=== PATIENT | male | born 1980 | race Caucasian/White ===

== ENCOUNTER 2024-12-25 17:40 | Emergency (ER) | payer MEDICAID, SELFPAY ==
[2024-12-25 17:47] VITALS: BP 142/86; PULSE 76; RESP 18; O2SAT 98
[2024-12-25 17:48] VITALS: BP 142/86; PULSE 76; RESP 18; O2SAT 98
--- NOTE | 2024-12-25 18:55 | W.ED.GENAD ---
Discharge Plan Disposition [facility] Disposition[facility] Discharge Details Clinical Impression: Left leg swelling, Medical clearance for incarceration Primary Care Provider: Unknown,Unknown ED Provider: Julio Hutchison Home Meds and New Rx's Prescriptions: No Action No Known Home Meds Discharge Instructions Instructions: Deep Vein Thrombosis (DVT) ED Additional Instructions: Please follow-up as instructed for outpatient ultrasound of your left lower extremity to rule out a blood clot given its recent swelling. Please follow-up as instructed for a ultrasound of your left leg to rule out a blood clot please follow-up with your primary care provider regarding your visit to the emergency department today. Be sure to discuss results of all test performed here today to include radiology, and laboratory testing as well as results for any pending cultures. Should your symptoms worsen, or if you develop new concerning symptoms, please return immediately emergency department for further evaluation. HPI General Date/Time Provider Initiated Documentation: 12/25/24 18:55. HPI Narrative: MDM/Narrative: Initial Assessment: Leg swelling, potentially related to previous surgery involving lymphatic system. No pain, recent trauma, fever, or chills. History of varicose veins. GERMANIA 0.286. Differential Diagnosis: - Blood clot: Swollen leg of questionable chronicity, no pain or erythema. Unable to evaluate outside business hours. Plan: Schedule ultrasound tomorrow morning as patient is stable. - Sequela of previous surgery: Swelling possibly due to lymphatic system involvement. Plan: Monitor and reassess after ultrasound. - Heart failure, unlikely given unilateral presentation ED Course: Smart clearance performed patient with a score of 0. Will be cleared for incarceration plan for outpatient DVT scan. Clinical Impression: - Leg swelling Disposition: Discharge: [facility]. Return for ultrasound tomorrow morning. This document was created with assistance from [employer]. The patient consented to its use. HPI: The patient, with a history of bacteremia and subsequent skin graft, presents with persistent lower extremity edema. The patient reports that the swelling in the leg, which typically subsides after rest, has been persistent recently. The edema is described as fluid retention without associated pain. The patient has no history of deep vein thrombosis but has varicose veins. There have been no recent episodes of chest pain, dyspnea, fever, chills, trauma, or falls. The skin graft was performed 7-8 years ago following a severe blood infection. The patient consumes beer, with the last intake at 1500 hours today. The blood alcohol concentration is 0.286. There is no history of seizures related to alcohol withdrawal, although the patient experiences tremors, which are not present currently. PAST SURGICAL HISTORY: Skin graft performed 7-8 years ago. ROS: Negative besides as mentioned above Exam: Vital signs: Reviewed. General Appearance: Alert and oriented. No acute distress. HEENT: NCAT, EOMI, not icteric. External ears normal. No rhinorrhea. Moist mucous membranes. Neck: Supple, full range of motion, no observable masses, No meningeal sign. Respiratory: No Respiratory distress. No tachypnea. Cardiovascular: RRR, no edema. Gastrointestinal: Soft, nondistended, No rebound tenderness. Back: No midline tenderness to palpation or palpable step-offs of the C/T/L spine. Musculoskeletal: Left lower extremity swelling noted, to the pretibial region, nontender no erythema no palpable cords Skin: Skin graft noted on right lower extremity. Neurological: Normal Gait, Grossly intact. Psychiatric: Appropriate for situation. Related Data Home Medications ?Medication ?Instructions ?Recorded ?Confirmed Unknown [No Known Home Meds] 12/25/24 12/25/24 Allergies Allergy/AdvReac Type Severity Reaction Status Date / Time No Known Allergies Allergy Unverified 12/25/24 17:48 General Stated Complaint: Cellulitis PIPPA: 3 Course Vital Signs Vital signs: Vital Signs Pulse 76 12/25/24 17:47 Respiratory Rate 18 12/25/24 17:47 Blood Pressure 142/86 H 12/25/24 17:47 Pulse Oximetry 98 12/25/24 17:47 Pulse 76 12/25/24 17:48 Respiratory Rate 18 12/25/24 17:48 Blood Pressure 142/86 H 12/25/24 17:48 Pulse Oximetry 98 12/25/24 17:48 Pain Level 0 12/25/24 17:48 PFSH All Active Problems (Updated 12/25/24 @ 18:58 by Julio Hutchison MD) Medical clearance for incarceration (Acute) Left leg swelling (Acute) Social History Smoking/Tobacco Use Status: Never Smoking risk assessment performed?: Yes Alcohol Intake: current Alcohol Intake frequency: 0-2 drinks per day Drug use: Never Substance use type: marijuana Do you feel safe at home: Yes Do you feel safe in your relationship?: Yes PAWSS Have you Been Recently Intoxicated or Drunk Within the Last 30 days?: Yes Have you Ever Experienced Previous Episodes of Alcohol Withdrawal?: Yes Have you ever Experienced Withdrawal Seizures?: No Have you ever Experienced Delirium Tremens(DT)s?: No Have you ever undergone Alcohol Rehabilitation Treatment (i.e, inpt ot outpatient treatment programs)?: No Have you ever Experienced Blackouts?: No Have you ever Combined Alcohol with other Downers within the last 90 days?: No Have you ever Combined Alcohol with any other Substance of Abuse during the last 90 days?: No Positive Blood Alcohol level on Presentation? [PCS.BAL]: No Evidence of Increased Autonomic Activity (i.e. HR>120, tremor, sweating, agitation, nausea)?: No Result: 2
[2024-12-25 19:08] VITALS: BP 142/86; PULSE 76; RESP 18; O2SAT 98
== END 2024-12-25 19:09 ==
PROVIDERS: Emergency Provider General Practice
DX: R22.42 Localized swelling, mass and lump, left lower limb (principal)
CPT/HCPCS: 99285; 99283

== ENCOUNTER 2024-12-28 17:54 | Inpatient (IN) | payer MEDICAID, SELFPAY ==
[2024-12-28] VITALS (45 sets, daily range): BP systolic 100–124; BP diastolic 68–93; PULSE 60–94; RESP 13–29; TEMP 36.7–36.9; O2SAT 94–99
--- NOTE | 2024-12-28 18:45 | RT.EKG_ITS ---
APPROVED REPORT Exam: Resting ECG Reason for Exam: confusion Patient Location: E HR:70 bpm ECG Measurements Heart Rate 70 AXIS NE 167 P 51 QRSd 98 QRS 57 QT 455 T 48 QTc 493 Conclusion Sinus rhythm...normal P axis, V-rate 60- 99 ST elev, probable normal early repol pattern...ST elevation, age<55 No STEMI
--- NOTE | 2024-12-28 19:15 | ED.GENADUL_ITS ---
Discharge Plan Disposition Patient Disposition: Admit to [facility] Condition: Serious Discharge Details Clinical Impression: Alcohol withdrawal delirium Primary Care Provider: Unknown,Unknown ED Provider: Julio Hutchison Home Meds and New Rx's Prescriptions: No Action No Known Home Meds HPI General Date/Time Provider Initiated Documentation: 12/28/24 18:01 . HPI Narrative: MDM/Narrative: Initial Assessment: 44-year-old male from correctional facility for alcohol withdrawal. Reports hallucinations, talking to imaginary people, and trying to make phone calls using fingers. Last alcohol consumption 3 days ago. No other substances used. Complains of back pain for 6 months. Differential Diagnosis: -Altered mental status: History of unknown chronic medication which was recently withdrawn which may be playing a role, also history of prior alcohol withdrawal. Will obtain screening blood work, EKG and monitor patient -Doubt CVA given lack of lateralizing features on exam -Encephalitis/meningitis unlikely given patient is afebrile without headache. - Acute intoxication: Will obtain urine drug screen and alcohol levels ED Course: Blood work conducted. Results reviewed. Minimal elevation of ammonia, total bilirubin up which is similar to patient's baseline noted through [facility] portal. Otherwise no acute significant findings. On reassessment, patient is endorsing visual and auditory hallucinations, remains tremulous, and although he is not hypertensive or tachycardic, I suspect that given the timeline of his last drink being over 4 days ago that he is developing delirium tremens. Case discussed with Dr. Ulrich (hospitalist) who was agreeable to plan for admission. Patient treated with Valium 10 mg IV. Clinical Impression: - Alcohol withdrawal - Delirium tremens This document was created with assistance from [employer]. The patient consented to its use. Disposition: Admit to [facility] HPI: The patient is a 44-year-old male with a history of alcohol withdrawal, presenting with hallucinations and dorsalgia. He was brought in from a correctional facility. The patient reports experiencing visual and auditory hallucinations, including conversing with imaginary individuals and attempting to make phone calls using h is fingers. He denies any formication or pruritus. His last alcohol consumption was three days ago, and he has abstained since then. He denies the use of other substances. His sleep quality is satisfactory, and he reports no anxiety or nausea. He was previously on a medication similar to diazepam, which was discontinued by the facility, leading to a deterioration in his condition. He believes he was administered a dose recently. The patient has been experiencing dorsalgia for the past six months, with an unknown etiology. Last night, he experienced symptoms of indigestion, including a burning sensation and eructation, which have since resolved. ROS: Negative besides as mentioned above Exam: Vital signs: Reviewed. General Appearance: Alert and oriented. No acute distress. HEENT: NCAT, EOMI, not icteric. External ears normal. No rhinorrhea. Moist mucous membranes. Neck: Supple, full range of motion, no observable masses, No meningeal sign. Respiratory: No Respiratory distress. No tachypnea. Cardiovascular: RRR, no edema. Gastrointestinal: Soft, nondistended, No rebound tenderness. Back: No midline tenderness to palpation or palpable step-offs of the C/T/L spine. Skin: Warm and dry, no rash. Neurological: Normal Gait, Grossly intact. Psychiatric: Appropriate for situation. Rhythm: NSR Rate: 70 [place]: Normal axis Intervals: Normal intervals Other findings: No acute ST segment or T wave changes to suggest acute ischemia. Labs: Laboratory Tests Range/Units 12/28/24 12/28/24 12/28/24 19:20 20:24 20:40 WBC (4.4-10.8) 10^3/uL 5.84 RBC (4.36-5.78) 10^6/uL 4.38 Hgb (13.5-17.5) g/dL 13.9 Hct (40.0-50.0) % 40.4 MCV (80-95) fL 92 MCH (27.0-33.0) pg 31.7 MCHC (32.0-36.0) % 34.4 RDW (11.8-14.1) % 15.2 H Plt Count (130-400) 10^3/uL 69 L MPV (8.0-11.0) fL 12.2 H Immature Gran % % 0.3 Neutrophils % % 52.9 Lymphocytes % % 25.2 Monocytes % % 19.7 Eosinophils % % 0.7 Basophils % % 1.2 Nucleated RBC % (0.0-0.3) % 0.0 Absolute Neutrophils (1.2-6.7) 10^3/uL 3.09 Absolute Lymphocytes (1.2-3.4) 10^3/uL 1.47 Absolute Monocytes (0.1-0.8) 10^3/uL 1.15 H Absolute Eosinophils (0.0-0.7) 10^3/uL 0.04 Absolute Basophils (0.0-0.2) 10^3/uL 0.07 Sodium (136-145) mmol/L 138 Potassium (3.5-5.1) mmol/L 3.7 Chloride (98-107) mmol/L 101 Carbon Dioxide (21.0-32.0) mmol/L 27.6 Anion Gap (3-11) mmol/L 9.4 BUN (7-18) mg/dL 22 H Creatinine (0.70-1.30) mg/dL 1.2 Est GFR (CKD-EPI 2020) (mL/min/1.73m2) 77.43 Glucose (74-106) mg/dL 95 Calcium (8.5-10.1) mg/dL 9.9 Total Bilirubin (0.2-1.0) mg/dL 4.7 H AST (15-37) U/L 158 H ALT (16-63) U/L 71 H Alkaline Phosphatase (46-116) U/L 136 H Ammonia (11-32) umol/L 35 H Troponin I (<or=76) ng/L 26 25 Total Protein (6.4-8.2) g/dL 8.4 H Albumin (3.4-5.0) g/dL 3.6 Salicylates (<2.8) mg/dL < 2.8 Acetaminophen (10-30) ug/mL < 2 Ethyl Alcohol (<10) mg/dL < 3.0 Related Data Home Medications ?Medication ?Instructions ?Recorded ?Confirmed Unknown [No Known Home Meds] 12/25/24 0 12/28/24 Allergies Allergy/AdvReac Type Severity Reaction Status Date / Time No Known Allergies Allergy Unverified 12/25/24 17:48 General Stated Complaint: ETOHWithdr PIPPA: 3 Course Vital Signs Vital signs: Vital Signs Temperature 36.9 C 12/28/24 18:09 Pulse 94 H 12/28/24 18:09 Respiratory Rate 14 12/28/24 18:09 Blood Pressure 115/78 12/28/24 18:09 Pulse Oximetry 97 12/28/24 18:09 Temperature 36.9 C 12/28/24 18:09 Temperature Source Oral 12/28/24 18:09 Pulse 70 12/28/24 18:38 Pulse 74 12/28/24 18:50 Respiratory Rate 21 12/28/24 18:50 Respiratory Effort Normal, Non-Labored 12/28/24 19:08 Respiratory Depth Normal 12/28/24 19:08 Respiratory Pattern Normal 12/28/24 19:08 Blood Pressure 100/68 12/28/24 18:38 Blood Pressure Mean 75 12/28/24 18:38 Pulse Oximetry 97 12/28/24 18:09 Oxygen Delivery Method Room Air 12/28/24 19:08 Oxygen Flow Rate 0 12/28/24 19:08 PFSH All Active Problems (Updated 12/28/24 @ 21:53 by Julio Hutchison MD) Alcohol withdrawal delirium (Acute) Medical clearance for incarceration (Acute) Left leg swelling (Acute) Social History Smoking/Tobacco Use Status: Never Smoking risk assessment performed?: Yes Alcohol Intake: current Alcohol Intake frequency: 0-2 drinks per day Substance use type: marijuana Do you feel safe at home: Yes Do you feel safe in your relationship?: Yes PAWSS Have you Been Recently Intoxicated or Drunk Within the Last 30 days?: Yes Have you Ever Experienced Previous Episodes of Alcohol Withdrawal?: No Have you ever Experienced Withdrawal Seizures?: Unable to Obtain Have you ever Experienced Delirium Tremens(DT)s?: No Have you ever undergone Alcohol Rehabilitation Treatment (i.e, inpt ot outpatient treatment programs)?: No Have you ever Experienced Blackouts?: Yes Have you ever Combined Alcohol with other Downers within the last 90 days?: No Have you ever Combined Alcohol with any other Substance of Abuse during the last 90 days?: No Positive Blood Alcohol level on Presentation? [PCS.BAL]: Yes Evidence of Increased Autonomic Activity (i.e. HR>120, tremor, sweating, agitation, nausea)?: Unable to Obtain Result: 3
[2024-12-28 19:36] LABS: Abs Immature Grans 0.02 10^3/uL (0.0-0.06); HCT 40.4 % (40.0-50.0); HGB 13.9 g/dL (13.5-17.5); Immature Grans % 0.3 %; MCH 31.7 pg (27.0-33.0); MCHC 34.4 % (32.0-36.0); MCV 92 fL (80-95); MPV 12.2 fL (8.0-11.0); RBC 4.38 10^6/uL (4.36-5.78); RDW 15.2 % (11.8-14.1); RDW-SD 51.7 fL; WBC 5.84 10^3/uL (4.4-10.8)
[2024-12-28 20:01] LABS: Platelet Count 69 10^3/uL (130-400)
[2024-12-28 20:04] LABS: ALT 71 U/L (16-63); AST 158 U/L (15-37); Albumin 3.6 g/dL (3.4-5.0); Alkaline Phosphatase 136 U/L (46-116); Anion Gap 9.4 mmol/L (3-11); BUN 22 mg/dL (7-18); Bilirubin, Total 4.7 mg/dL (0.2-1.0); CO2 27.6 mmol/L (21.0-32.0); Calcium 9.9 mg/dL (8.5-10.1); Chloride 101 mmol/L (98-107); Estimated GFR 77.43 (mL/min/1.73m2); Glucose 95 mg/dL (74-106); Potassium 3.7 mmol/L (3.5-5.1); Sodium 138 mmol/L (136-145); Total Protein 8.4 g/dL (6.4-8.2); Troponin I 26 ng/L (<or=76)
[2024-12-28 20:09] LABS: Acetaminophen < 2 ug/mL (10-30); Salicylate < 2.8 mg/dL (<2.8)
[2024-12-28 20:47] LABS: Troponin I 25 ng/L (<or=76)
[2024-12-28 21:03] LABS: Ammonia 35 umol/L (11-32)
[2024-12-28] MEDS: diazePAM 10 MG/2 ML SYR IVP ×2 (21:25→23:19)
[2024-12-28 22:11] LABS: INR 1.4 (0.9-1.1); Prothrombin Time 13.9 sec (9.1-11.1)
--- NOTE | 2024-12-28 22:12 | W.PM.HP.N ---
Date of service: 12/28/24 Time of Service: 22:00 Assessment and Plan Assessment and plan (1) Hepatic encephalopathy: Status: Acute Assessment and plan: Likely hepatic encephalopathy with delirium, hyperammonemia, known longstanding EtOH abuse Lactulose 20 TID to produce 3 stools per day (2) Alcohol withdrawal delirium: Status: Acute Assessment and plan: He is still in the EtOH withdrawal window, will treat for withdrawal Initially he was responsive to benzodiazepines but on the floor became more agitated and phenobarbital was started Continue [facility] protocol Intensive thiamine theapy (3) Urinary retention: Status: Acute Assessment and plan: Per nursing report, flores could not be placed due to thick pus despite ultrasound showing 400 retained Flores was placed and reportedly pus and thick cloudy urine were expressed UA and UDS not done in ED, requested these be sent to lab now Continue hydration and monitor urine output Deferring antibiotics with little evidence of infection at this time History of Present Illness History of Present Illness Chief Complaint: delirium Narrative: Regan Bird is a 44 year old male inmate presenting December 28 with 3 days of worsening delirium since his last EtOH; he was [facility]. Patient is actively hallucinating, in conversation with unseen people, gesturing and speaking in garbled sentences. Per review of the medical record, patient has a history of EtOH dependence and withdrawal, frequently treated at [facility]. On interview the patient is able to say his name but is otherwise unable to answer questions. In the ED he was mildly tachycardic 94, tachypneic 28. EKG with sinus rhythm. Thrombocytopenia 69. INR 1.4. Hyperbili 4.7. Transaminitis AST 158 ALT 71. Ammonia 35. BAL negative. He was given diazepam. PFS All Active Problems (Updated 12/29/24 @ 06:56 by Shay Ulrich MD) Urinary retention (Acute) Hepatic encephalopathy (Acute) Alcohol withdrawal delirium (Acute) Medical clearance for incarceration (Acute) Left leg swelling (Acute) Social History Smoking/Tobacco Use Status: Never Smoking risk assessment performed?: Yes Alcohol Intake: current Alcohol Intake frequency: 0-2 drinks per day Substance use type: marijuana Housing: other Do you feel safe at home: Yes Do you feel safe in your relationship?: Yes Meds Allergies and Home Medications Allergies Allergy/AdvReac Type Severity Reaction Status Date / Time No Known Allergies Allergy Unverified 12/25/24 17:48 Home Medications ?Medication ?Instructions ?Recorded ?Confirmed ?Type Unknown [No Known Home Meds] 12/25/24 12/28/24 History Exam Narrative Exam Narrative: General: This is a calm male inmate in no acute distress HEENT: Normocephalic, atraumatic CV: RRR Resp: CTAB Abd: soft, NTND MSK: voluntary motion x4 Neuro: Alert to self, no focal deficits Results Labs 12/28/24 19:20 12/28/24 19:20 Labs: Laboratory Results - last 24 hr 12/28/24 12/28/24 12/28/24 19:20 20:24 20:40 WBC 5.84 RBC 4.38 Hgb 13.9 Hct 40.4 MCV 92 MCH 31.7 MCHC 34.4 RDW 15.2 H Plt Count 69 L MPV 12.2 H Immature Gran % 0.3 Neutrophils % 52.9 Lymphocytes % 25.2 Monocytes % 19.7 Eosinophils % 0.7 Basophils % 1.2 Nucleated RBC % 0.0 Absolute Neutrophils 3.09 Absolute Lymphocytes 1.47 Absolute Monocytes 1.15 H Absolute Eosinophils 0.04 Absolute Basophils 0.07 Sodium 138 Potassium 3.7 Chloride 101 Carbon Dioxide 27.6 Anion Gap 9.4 BUN 22 H Creatinine 1.2 Est GFR (CKD-EPI 2020) 77.43 Glucose 95 Calcium 9.9 Total Bilirubin 4.7 H AST 158 H ALT 71 H Alkaline Phosphatase 136 H Ammonia 35 H Troponin I 26 25 Total Protein 8.4 H Albumin 3.6 Salicylates < 2.8 Acetaminophen < 2 Ethyl Alcohol < 3.0 Add-On Test Request 12/28/24 Unknown WBC RBC Hgb Hct MCV MCH MCHC RDW Plt Count MPV Immature Gran % Neutrophils % Lymphocytes % Monocytes % Eosinophils % Basophils % Nucleated RBC % Absolute Neutrophils Absolute Lymphocytes Absolute Monocytes Absolute Eosinophils Absolute Basophils Sodium Potassium Chloride Carbon Dioxide Anion Gap BUN Creatinine Est GFR (CKD-EPI 2020) Glucose Calcium Total Bilirubin AST ALT Alkaline Phosphatase Ammonia Troponin I Total Protein Albumin Salicylates Acetaminophen Ethyl Alcohol Add-On Test Request done Last Vital Signs Temp 36.9 C 12/28/24 18:09 Pulse 60 12/28/24 22:00 Resp 17 12/28/24 22:00 BP 100/68 12/28/24 18:38 Pulse Ox 94 12/28/24 22:00 PAWSS Have you Been Recently Intoxicated or Drunk Within the Last 30 days?: Yes Have you Ever Experienced Previous Episodes of Alcohol Withdrawal?: No Have you ever Experienced Withdrawal Seizures?: Unable to Obtain Have you ever Experienced Delirium Tremens(DT)s?: No Have you ever undergone Alcohol Rehabilitation Treatment (i.e, inpt ot outpatient treatment programs)?: No Have you ever Experienced Blackouts?: Yes Have you ever Combined Alcohol with other Downers within the last 90 days?: No Have you ever Combined Alcohol with any other Substance of Abuse during the last 90 days?: No Positive Blood Alcohol level on Presentation? [PCS.BAL]: Yes Evidence of Increased Autonomic Activity (i.e. HR>120, tremor, sweating, agitation, nausea)?: Unable to Obtain Result: 3 Time Spent Time spent with Patient: 40-54 minutes Time was spent: preparing to see the patient(eg.review tests), obtaining and/or reviewing separately otained hiistory, ordering medications,tests, procedures, referring, communicating with other health rn palliative care, indepentently interpreting results, counseling the patient and care coordination
--- NOTE | 2024-12-28 22:24 | W.PC.ACHO ---
Registration Status: REG ER Primary Language: Preferred Language: ED Information & Data Chief Complaint ETOHWithdr 12/28/24 19:18 Triage Note patient was sent from the 12/28/24 18:09 correctional department because he is detoxing. Most Recent Vital Signs Temperature 36.9 C 12/28/24 18:09 Temperature Source Oral 12/28/24 18:09 Pulse 62 12/28/24 22:16 Pulse 67 12/28/24 22:00 Respiratory Rate 14 12/28/24 22:16 Respiratory Effort Normal, Non-Labored 12/28/24 21:25 Respiratory Depth Normal 12/28/24 21:25 Respiratory Pattern Normal 12/28/24 21:29 Blood Pressure 100/68 12/28/24 18:38 Blood Pressure Mean 75 12/28/24 18:38 Pulse Oximetry 95 12/28/24 22:16 Oxygen Delivery Method Room Air 12/28/24 20:10 Oxygen Flow Rate 0 12/28/24 20:10 Allergies No Known Allergies Allergy (Unverified 12/25/24 17:48) Precautions Isolation Seizure precaution 12/28/24 18:53 IV IV Catheter Type [Left Saline Lock Antecubital] IV Catheter Gauge [Left 18 Antecubital] Diet Orders Category Date Time Status Regular/Normal [DIET] Nutrition 12/29/24 Breakfast Ordered Diagnostics 12/28/24 12/28/24 12/28/24 Range/Units Unknown 20:40 20:24 WBC (4.4-10.8) 10^3/uL RBC (4.36-5.78) 10^6/uL Hgb (13.5-17.5) g/dL Hct (40.0-50.0) % MCV (80-95) fL MCH (27.0-33.0) pg MCHC (32.0-36.0) % RDW (11.8-14.1) % Plt Count (130-400) 10^3/uL MPV (8.0-11.0) fL Immature Gran % % Neutrophils % % Lymphocytes % % Monocytes % % Eosinophils % % Basophils % % Nucleated RBC % (0.0-0.3) % Absolute Neutrophils (1.2-6.7) 10^3/uL Absolute Lymphocytes (1.2-3.4) 10^3/uL Absolute Monocytes (0.1-0.8) 10^3/uL Absolute Eosinophils (0.0-0.7) 10^3/uL Absolute Basophils (0.0-0.2) 10^3/uL PT (9.1-11.1) sec INR (0.9-1.1) Sodium (136-145) mmol/L Potassium (3.5-5.1) mmol/L Chloride (98-107) mmol/L Carbon Dioxide (21.0-32.0) mmol/L Anion Gap (3-11) mmol/L BUN (7-18) mg/dL Creatinine (0.70-1.30) mg/dL Est GFR (CKD-EPI 2020) (mL/min/1.73m2) Glucose (74-106) mg/dL Calcium (8.5-10.1) mg/dL Total Bilirubin (0.2-1.0) mg/dL AST (15-37) U/L ALT (16-63) U/L Alkaline Phosphatase (46-116) U/L Ammonia 35 H (11-32) umol/L Troponin I 25 (<or=76) ng/L Total Protein (6.4-8.2) g/dL Albumin (3.4-5.0) g/dL Salicylates (<2.8) mg/dL Acetaminophen (10-30) ug/mL Ethyl Alcohol (<10) mg/dL Add-On Test Request done 12/28/24 Range/Units 19:20 WBC 5.84 (4.4-10.8) 10^3/uL RBC 4.38 (4.36-5.78) 10^6/uL Hgb 13.9 (13.5-17.5) g/dL Hct 40.4 (40.0-50.0) % MCV 92 (80-95) fL MCH 31.7 (27.0-33.0) pg MCHC 34.4 (32.0-36.0) % RDW 15.2 H (11.8-14.1) % Plt Count 69 L (130-400) 10^3/uL MPV 12.2 H (8.0-11.0) fL Immature Gran % 0.3 % Neutrophils % 52.9 % Lymphocytes % 25.2 % Monocytes % 19.7 % Eosinophils % 0.7 % Basophils % 1.2 % Nucleated RBC % 0.0 (0.0-0.3) % Absolute Neutrophils 3.09 (1.2-6.7) 10^3/uL Absolute Lymphocytes 1.47 (1.2-3.4) 10^3/uL Absolute Monocytes 1.15 H (0.1-0.8) 10^3/uL Absolute Eosinophils 0.04 (0.0-0.7) 10^3/uL Absolute Basophils 0.07 (0.0-0.2) 10^3/uL PT 13.9 H (9.1-11.1) sec INR 1.4 H (0.9-1.1) Sodium 138 (136-145) mmol/L Potassium 3.7 (3.5-5.1) mmol/L Chloride 101 (98-107) mmol/L Carbon Dioxide 27.6 (21.0-32.0) mmol/L Anion Gap 9.4 (3-11) mmol/L BUN 22 H (7-18) mg/dL Creatinine 1.2 (0.70-1.30) mg/dL Est GFR (CKD-EPI 2020) 77.43 (mL/min/1.73m2) Glucose 95 (74-106) mg/dL Calcium 9.9 (8.5-10.1) mg/dL Total Bilirubin 4.7 H (0.2-1.0) mg/dL AST 158 H (15-37) U/L ALT 71 H (16-63) U/L Alkaline Phosphatase 136 H (46-116) U/L Ammonia (11-32) umol/L Troponin I 26 (<or=76) ng/L Total Protein 8.4 H (6.4-8.2) g/dL Albumin 3.6 (3.4-5.0) g/dL Salicylates < 2.8 (<2.8) mg/dL Acetaminophen < 2 (10-30) ug/mL Ethyl Alcohol < 3.0 (<10) mg/dL Add-On Test Request Intake and Output - 24 Hour Total 12/28/24 17:54 thru 12/28/24 18:09 Weight 90.5 kg Falls Risk Assessment History of Falls Previous History 12/28/24 18:58 Contributing Factors Impairments 12/28/24 18:58 Ambulatory Aids Independent 12/28/24 18:58 Tubes/Lines None 12/28/24 18:58 Gait Evaluation No gait disturbance 12/28/24 18:58 Cognition Cognitive impairment 12/28/24 18:58 Fall Total Score 33 12/28/24 18:58 Level of Risk Moderate Risk 12/28/24 18:58 v v v v v v v v v Sending and/or Receiving Nurses: Please use comment section below to note any information pertinent to the patient hand-off not included above. Information / Comments: Pt here with DOC with possibly ETOH withdrawal. Last drink 12/25. Pending UDS for other causes. A&Ox2, VSS, CIWAs negative. Pt confused, thinks he was thrown into some locks down in the ED, chewed off spo2 monitor x2. Received Diazepam 10mg IVP. 18G LAC, left ankle swollen, but w/o pain. Report received from: Therese Ardon RN
[2024-12-28] MEDS: Lactated Ringers 1,000 ML 150 ML IV (23:20)
[2024-12-28] MEDS: THIAMINE 500 MG in Normal Saline 100 ML 200 MG IVPB (23:20)
[2024-12-29] VITALS (89 sets, daily range): BP systolic 87–126; BP diastolic 52–89; PULSE 54–109; RESP 16–21; TEMP 36.1–37; O2SAT 89–99
[2024-12-29] MEDS: diazePAM 10 MG/2 ML SYR IVP ×2 (00:26→00:40)
[2024-12-29] MEDS: PHENobarbital 200 MG in Normal Saline 50 ML 100 MG IVPB (01:18)
[2024-12-29] MEDS: Lactulose 20 GM/30 ML CUP PO ×4 (01:53→23:45)
[2024-12-29] MEDS: PHENobarbital 130 MG/ML VIAL IVP ×7 (03:15→18:26)
[2024-12-29] MEDS: PHENobarbital 150 MG in Normal Saline 50 ML 100 MG IVPB ×2 (04:29→06:35)
[2024-12-29] MEDS: THIAMINE 500 MG in Normal Saline 100 ML 200 MG IVPB ×3 (05:32→22:13)
[2024-12-29 06:59] LABS: Abs Immature Grans 0.01 10^3/uL (0.0-0.06); HCT 40.1 % (40.0-50.0); HGB 13.7 g/dL (13.5-17.5); Immature Grans % 0.2 %; MCH 31.6 pg (27.0-33.0); MCHC 34.2 % (32.0-36.0); MCV 93 fL (80-95); RBC 4.33 10^6/uL (4.36-5.78); RDW 15.5 % (11.8-14.1); RDW-SD 52.1 fL; WBC 4.39 10^3/uL (4.4-10.8)
[2024-12-29 07:25] LABS: ALT 64 U/L (16-63); AST 162 U/L (15-37); Albumin 3.2 g/dL (3.4-5.0); Alkaline Phosphatase 124 U/L (46-116); Anion Gap 9.9 mmol/L (3-11); BUN 15 mg/dL (7-18); Bilirubin, Total 4.9 mg/dL (0.2-1.0); CO2 25.1 mmol/L (21.0-32.0); Calcium 9.5 mg/dL (8.5-10.1); Chloride 104 mmol/L (98-107); Estimated GFR 109.36 (mL/min/1.73m2); Glucose 83 mg/dL (74-106); Magnesium 1.5 mg/dL (1.8-2.4); Potassium 3.9 mmol/L (3.5-5.1); Sodium 139 mmol/L (136-145); Total Protein 7.7 g/dL (6.4-8.2)
--- NOTE | 2024-12-29 08:00 | DI.US_ITS ---
Exam(s) US LOWER EXTREMITY VENOUS LT EXAM: US LOWER EXTREMITY VENOUS LT CLINICAL HISTORY: query VTE TECHNIQUE: Left lower extremity venous ultrasound performed using grayscale, color-flow, and spectral Doppler analysis. COMPARISON: No exams were available for comparison FINDINGS: The left common femoral, femoral and popliteal veins demonstrate normal compressibility, augmentation, and color Doppler. The posterior tibial veins are patent. The saphenofemoral junction is unremarkable. There is no evidence of a Avery cyst. The soft tissues are unremarkable. IMPRESSION: No evidence of a left lower extremity DVT. DATA REPOSITORY:
[2024-12-29 08:04] LABS: INR 1.5 (0.9-1.1); Prothrombin Time 14.3 sec (9.1-11.1)
[2024-12-29] MEDS: Normal Saline Flush 10 ML SYR IVP ×2 (09:35→18:27)
--- NOTE | 2024-12-29 09:46 | NUR.NOTE ---
Nursing Note: This nurse rounded with plant inspector at 0756 for change of shift. At this time pt was noted to have both hands and feet cuffed to bed by DOC, skin appears intact and no issues noted at this time. At 0824 this nurse rounded again and administered phenobarb for elevated CIWA score (see CIWA documentation), pt is still noted to have both hands and feet cuffed to bed by DOC, skin still appears intact with no issues. At 0902 this nurse rounded again and pt is noted to be resting at this time, both hands and feet are cuffed to bed by DOC. At 0944 this nurse rounded again and administered another dose of phenobarb for elevated CIWA (see CIWA documentation) and pt is still noted to have hands and feet cuffed to bed by DOC, some redness noted at wrists but no other skin breakdown noted at this time.
--- NOTE | 2024-12-29 09:50 | INITIAL_ITS ---
Date of service: 12/29/24 Time of Service: 09:50 Care Management Initial Assmt Initial Assessment Reason for Hospitalization: ETOH withdrawal Functional Status/Living Situation Patient Presentation: Regan was admitted from [facility] yesterday with ETOH withdrawal and delirium. He was handcuffed to the bed with a juvenile corrections officer as guard when CM attempted to meet with him. Regan was hallucinating and unable to participate in a conversation at that time. He is on the phenobarbital protocol and continues to have CIWA scores between 17 and 20. Regan also lost IV access and consideration is being given to inserting a midline and/or transferring him to the ICU to be sedated as he is very restless and agitated. CM will follow. Town of Residence: [facility] Resides with: Other Advance Directives Advance Directives: Do you have an Advance Directive: N Today, 04:00 AD On File at [facility]: N 12/25/24, 17:45 Date Asked 12/28/24 Today, 04:00 AD Date Reviewed COLST On File at [facility] No 12/25/24, 17:45 COLST Date Scanned Code Status Resuscitation Status Full Code Care Team Visit Care Team Role Provider Type Bernardino Ba MD [facility] STAFF PHYSICIAN Unknown Unknown Primary Care Provider STAFF PHYSICIAN InPatient Leeroy Hoyosvinod Other Providers OTHER Julio Hutchison MD Emergency Provider [facility] STAFF PHYSICIAN Shay Ulrich MD Admit Provider [facility] STAFF PHYSICIAN Attending Provider Discharge Potential Discharge Needs: Other (return to DOC) Anticipated Barriers to Discharge: None Identified Patient/Family Education Needs: Review discharge instructions, discuss Ask Me Three Transportation: Facility Transport Plan: Regan will return to the [facility] when medically cleared. He will follow up with facility providers and plan of care and transport via facility vehicle with correctionss officers. CM will continue to assess for dsicharge needs. Social Determinants of Health Screening Will the Patient Participate in the Screening?: Unable to obtain PFSH All Active Problems (Updated 12/29/24 @ 15:55 by Bernardino Ba) DVT prophylaxis (Acute) Alcohol use disorder, severe, dependence (Acute) Alcoholic cirrhosis of liver (Acute) Urinary retention (Acute) Hepatic encephalopathy (Acute) Alcohol withdrawal delirium (Acute) Medical clearance for incarceration (Acute) Left leg swelling (Acute) Social History Smoking/Tobacco Use Status: Never Smoking risk assessment performed?: Yes Alcohol Intake: current Alcohol Intake frequency: 0-2 drinks per day Substance use type: marijuana Housing: other Do you feel safe at home: Yes Do you feel safe in your relationship?: Yes
--- NOTE | 2024-12-29 10:07 | NUR.NOTE ---
Nursing Note: 0907 this nurse rounded and noted pt to still have both hands and feet cuffed to bed by DOC. VSS when taken during rounding, no pain reported by pt. Some redness noted on left wrist and right ankle. This nurse requested DOC to see if they can reposition cuffs to alleviate pressure on skin at wrists and ankles.
[2024-12-29] MEDS: Lactated Ringers 1,000 ML 150 ML IV (10:31)
--- NOTE | 2024-12-29 10:34 | NUR.NOTE ---
Nursing Note: This nurse rounded at 1030 and pt was noted to be asleep and comfortable. The DOC has removed one cuff off the left foot, at this time his other three limbs are still cuffed to the bed. No other skin changes noted at wrists and ankles, just redness at left wrist and right ankle. The DOC was able to reposition patient to offset some of the pressure on the cuffs.
[2024-12-29] MEDS: Tamsulosin 0.4 MG CAPCR PO (13:03)
[2024-12-29 13:33] LABS: Glucose Negative (Negative)
[2024-12-29 13:49] LABS: Cannabinoids THC Positive (Negative); METHADONE URINE SCREEN Negative (Negative)
[2024-12-29 13:53] LABS: C & S Indicated? Yes; RBC 0-2 HPF (0-2)
--- NOTE | 2024-12-29 14:34 | NUR.NOTE ---
Nursing Note: This nurse rounded at 1145 and pt has both his hands and right foot cuffed by DOC, redness noted on left wrist and right ankle, no change. Rounded again at 1238 and pt still has both hands and right foot cuffed by DOC, no change to already observed redness or new skin issues from cuffs. This nurse rounded at 1307 and 1419 pt continues to have both hands and right foot cuffed by DOC, no new skin issues noted by cuffs other then already observed redness.
--- NOTE | 2024-12-29 15:33 | W.PM.PROGNOT ---
Date of Service Date of service: 12/29/24 Time of Service: 15:34 Assessment and Plan Assessment and plan (1) Hepatic encephalopathy: Status: Acute Assessment and plan: I agree this is likely hepatic encephalopathy with delirium, hyperammonemia, known longstanding EtOH abuse Lactulose 20 TID to produce 3 stools per day Treatign UTI, no significant ascites to suggest SBP risk continue to monitor. He may need ICU status if if continues to require a high level of nursing care. (2) Alcohol withdrawal delirium: Status: Acute Assessment and plan: He is still in the EtOH withdrawal window, being treated for withdrawal Initially he was responsive to benzodiazepines but on the floor became more agitated and phenobarbital was started Continue CIWA protocol Intensive thiamine in case wernickes contributing, not eating/drinking much so add glucose back to fluids EtOH negative on admission, get phopshatidylethanol to confirm history of ongoing heavy drinking (3) Urinary retention: Status: Acute Assessment and plan: Per nursing report, flores could not be placed due to thick pus despite ultrasound showing 400 retained Flores was placed and reportedly pus and thick cloudy urine were expressed UA does show pyuria, will treat given MS changes, ceftriaxone Also started on tamsulosin. Continue hydration and monitor urine output Given degree of milky discharge initially, urine also sent for gc/chl probe (4) Alcoholic cirrhosis of liver: Status: Acute Assessment and plan: I did confirm through [facility] that he has known cirrhosis Elevated INR and bilirubin thus c/w exacerbation of chronic liver failure than acute alcoholic hepatitis. Either way, Una's 19 c/w good prognosis. Give vitamin K as with poor nutrition this may help INR Continue to monitor. He should likely be started on carvedilol prior to discharge as low plts c/w portal HTN (5) Left leg swelling: Status: Acute Assessment and plan: LLE u/s negative for DVT (6) Alcohol use disorder, severe, dependence: Status: Acute Assessment and plan: address when MS improves (7) DVT prophylaxis: Status: Acute Assessment and plan: platelets low, but >50 and with cirrhosis clot risk is higher. Treat with enoxaparin Subjective Subjective Patient reports: denies diarrhea, vomiting or fever Interval history since last seen: Events: Per RNs and correctional officers, has been hallucinating, disoriented. He thinks he is at his home in [place]. Denies pain, but does not appear to understand questions. Taking some liquid such as lactulose po, no difficulty swallowing. Exam Narrative Exam Narrative: General: Cuffed loosely to bed at 3 points per corrections. Disoriented, babbling. In no acute distress HEENT: Normocephalic, atraumatic CV: RRR, no murmur. nl cap refill, edema 1+ left, trace right Resp: CTAB, normal effort Abd: soft, not distended, no clear fluid wave or masses, not tender. Skin: no large bruises/rashes, slight prominence of periumbilical veins. +gynocomastia Neuro: No tremor, no focal deficits Objective Last Vital Signs Temp 36.4 C L 12/29/24 12:08 Pulse 62 12/29/24 12:08 Resp 17 12/29/24 12:08 BP 106/71 12/29/24 12:08 Pulse Ox 94 12/29/24 12:08 Laboratory Results - last 24 hr 12/28/24 12/28/24 12/28/24 19:20 20:24 20:40 WBC 5.84 RBC 4.38 Hgb 13.9 Hct 40.4 MCV 92 MCH 31.7 MCHC 34.4 RDW 15.2 H Plt Count 69 L MPV 12.2 H Immature Gran % 0.3 Neutrophils % 52.9 Lymphocytes % 25.2 Monocytes % 19.7 Eosinophils % 0.7 Basophils % 1.2 Nucleated RBC % 0.0 Absolute Neutrophils 3.09 Absolute Lymphocytes 1.47 Absolute Monocytes 1.15 H Absolute Eosinophils 0.04 Absolute Basophils 0.07 PT 13.9 H INR 1.4 H Sodium 138 Potassium 3.7 Chloride 101 Carbon Dioxide 27.6 Anion Gap 9.4 BUN 22 H Creatinine 1.2 Est GFR (CKD-EPI 2020) 77.43 Glucose 95 Calcium 9.9 Magnesium Total Bilirubin 4.7 H AST 158 H ALT 71 H Alkaline Phosphatase 136 H Ammonia 35 H Troponin I 26 25 Total Protein 8.4 H Albumin 3.6 Urine Color Urine Clarity Urine pH Ur Specific [place] Urine Protein Urine Ketones Urine Blood Urine Nitrite Urine Bilirubin Urine Urobilinogen Ur Leukocyte Esterase Urine RBC Urine WBC Ur Epithelial Cells Urine Crystals Urine Bacteria Urine Casts Urine Mucus Ur Culture Indicated? Urine Glucose Salicylates < 2.8 Urine Opiates Screen Urine Methadone Screen Acetaminophen < 2 Ur Barbiturates Screen Ur Tricyclics Screen Ur Amphetamines Screen U Benzodiazepines Scrn Urine Cocaine Screen Ur THC Screen Ethyl Alcohol < 3.0 Add-On Test Request 12/28/24 12/29/24 12/29/24 Unknown 06:07 07:25 WBC 4.39 L RBC 4.33 L Hgb 13.7 Hct 40.1 MCV 93 MCH 31.6 MCHC 34.2 RDW 15.5 H Plt Count MPV Immature Gran % 0.2 Neutrophils % 50.1 Lymphocytes % 26.7 Monocytes % 20.5 Eosinophils % 1.4 Basophils % 1.1 Nucleated RBC % 0.0 Absolute Neutrophils 2.20 Absolute Lymphocytes 1.17 L Absolute Monocytes 0.90 H Absolute Eosinophils 0.06 Absolute Basophils 0.05 PT 14.3 H INR 1.5 H Sodium 139 Potassium 3.9 Chloride 104 Carbon Dioxide 25.1 Anion Gap 9.9 BUN 15 Creatinine 0.9 Est GFR (CKD-EPI 2020) 109.36 Glucose 83 Calcium 9.5 Magnesium 1.5 L Total Bilirubin 4.9 H AST 162 H ALT 64 H Alkaline Phosphatase 124 H Ammonia Troponin I Total Protein 7.7 Albumin 3.2 L Urine Color Urine Clarity Urine pH Ur Specific [place] Urine Protein Urine Ketones Urine Blood Urine Nitrite Urine Bilirubin Urine Urobilinogen Ur Leukocyte Esterase Urine RBC Urine WBC Ur Epithelial Cells Urine Crystals Urine Bacteria Urine Casts Urine Mucus Ur Culture Indicated? Urine Glucose Salicylates Urine Opiates Screen Urine Methadone Screen Acetaminophen Ur Barbiturates Screen Ur Tricyclics Screen Ur Amphetamines Screen U Benzodiazepines Scrn Urine Cocaine Screen Ur THC Screen Ethyl Alcohol Add-On Test Request done 12/29/24 13:05 WBC RBC Hgb Hct MCV MCH MCHC RDW Plt Count MPV Immature Gran % Neutrophils % Lymphocytes % Monocytes % Eosinophils % Basophils % Nucleated RBC % Absolute Neutrophils Absolute Lymphocytes Absolute Monocytes Absolute Eosinophils Absolute Basophils PT INR Sodium Potassium Chloride Carbon Dioxide Anion Gap BUN Creatinine Est GFR (CKD-EPI 2020) Glucose Calcium Magnesium Total Bilirubin AST ALT Alkaline Phosphatase Ammonia Troponin I Total Protein Albumin Urine Color Yellow Urine Clarity Clear Urine pH 6.5 Ur Specific [place] 1.015 Urine Protein Negative Urine Ketones Trace H Urine Blood Negative Urine Nitrite Negative Urine Bilirubin Small H Urine Urobilinogen >=8.0 H Ur Leukocyte Esterase Small H Urine RBC 0-2 Urine WBC 10-20 H Ur Epithelial Cells Few Urine Crystals Negative Urine Bacteria Few Urine Casts Negative Urine Mucus Negative Ur Culture Indicated? Yes Urine Glucose Negative Salicylates Urine Opiates Screen Negative Urine Methadone Screen Negative Acetaminophen Ur Barbiturates Screen Positive A Ur Tricyclics Screen Negative Ur Amphetamines Screen Negative U Benzodiazepines Scrn Positive A Urine Cocaine Screen Negative Ur THC Screen Positive A Ethyl Alcohol Add-On Test Request PAWSS Have you Been Recently Intoxicated or Drunk Within the Last 30 days?: Yes Have you Ever Experienced Previous Episodes of Alcohol Withdrawal?: Yes Have you ever Experienced Withdrawal Seizures?: Yes Have you ever Experienced Delirium Tremens(DT)s?: Yes Have you ever undergone Alcohol Rehabilitation Treatment (i.e, inpt ot outpatient treatment programs)?: No Have you ever Experienced Blackouts?: Yes Have you ever Combined Alcohol with other Downers within the last 90 days?: No Have you ever Combined Alcohol with any other Substance of Abuse during the last 90 days?: No Positive Blood Alcohol level on Presentation? [PCS.BAL]: Yes Evidence of Increased Autonomic Activity (i.e. HR>120, tremor, sweating, agitation, nausea)?: Unable to Obtain Result: 6 Time Spent with Patient Time Spent with Patient: >50 minutes Time was spent: preparing to see the patient(eg.review tests), obtaining and/or reviewing separately otained hiistory, ordering medications,tests, procedures, referring, communicating with other health home care liaison, indepentently interpreting results, counseling the patient and care coordination
[2024-12-29] MEDS: PHYTONADIONE 10 MG/ML SC (16:41)
[2024-12-29] MEDS: DEXTROSE 5%-LACTATED RINGERS 1,000 ML 125 ML IV (17:07)
[2024-12-29] MEDS: MAGNESIUM SULFATE 2 GM/50 ML BAG IV_INF (17:53)
[2024-12-29] MEDS: Enoxaparin 40 MG/0.4 ML SYR SC (18:26)
--- NOTE | 2024-12-29 19:50 | W.PC.ACHO ---
Registration Status: ADM IN Primary Language: Preferred Language: ED Information & Data Chief Complaint ETOHWithdr 12/28/24 19:18 Triage Note patient was sent from the 12/28/24 18:09 correctional department because he is detoxing. Most Recent Vital Signs Temperature 36.8 C 12/29/24 19:41 Temperature Source Temporal Artery Scan 12/29/24 16:20 Pulse 60 12/29/24 19:41 Pulse Rhythm Regular 12/28/24 22:36 Pulse 59 L 12/29/24 19:34 Respiratory Rate 19 12/29/24 19:34 Respiratory Effort Normal, Non-Labored 12/28/24 22:36 Respiratory Depth Normal 12/28/24 22:36 Respiratory Pattern Normal 12/28/24 22:36 Blood Pressure 100/61 12/29/24 19:33 Blood Pressure Mean 73 12/29/24 19:33 Pulse Oximetry 96 12/29/24 19:34 Oxygen Delivery Method Room Air 12/29/24 19:41 Oxygen Flow Rate 0 12/29/24 19:41 Pain Level 0 12/29/24 16:20 Allergies No Known Allergies Allergy (Unverified 12/25/24 17:48) Precautions Isolation Seizure precaution 12/28/24 18:53 Active Medications Generic Name Dose Route Start Last Admin Trade Name Freq PRN Reason Stop Dose Admin Enoxaparin Sodium 40 mg 12/29/24 16:00 12/29/24 18:26 Enoxaparin 40 Mg/0.4 Ml Syr SC 40 mg Q24H BRIANNA Administration Thiamine HCl 500 mg/ Sodium 105 mls @ 200 mls/hr 12/28/24 22:00 12/29/24 17:59 Chloride IVPB 12/31/24 14:32 Infused Q8H BRIANNA Infusion Dextrose/Lactated Ringer's 1,000 mls @ 125 mls/hr 12/29/24 15:45 12/29/24 17:07 Dextrose 5%-Lr IV 125 mls/hr INFUSION BRIANNA Administration Lactulose 20 gm 12/29/24 00:00 12/29/24 17:56 Lactulose 20 Gm/30 Ml Cup PO 20 gm Q8H BRIANNA Administration Phenobarbital Sodium 130 mg 12/29/24 01:00 12/29/24 18:26 Phenobarbital 130 Mg/Ml Vial IVP 130 mg DIRECTED PRN Administration for mild anxiety/agitation Sodium Chloride 0 ml 12/29/24 09:28 12/29/24 18:27 Normal Saline Flush 10 Ml Syr IVP 20 ml PRN PRN Administration IV IV Catheter Type [LAC] Peripheral IV IV Catheter Type [Left Forearm Peripheral IV ] IV Catheter Type [Left Saline Lock Antecubital] IV Catheter Gauge [LAC] 20 IV Catheter Gauge [Left 22 Forearm] IV Catheter Gauge [Left 18 Antecubital] Diet Orders Category Date Time Status DIET [Regular/Normal] [DIET] Nutrition 12/29/24 Dinner Active Diagnostics 12/29/24 12/29/24 12/29/24 Range/Units 16:45 13:05 07:25 WBC (4.4-10.8) 10^3/uL RBC (4.36-5.78) 10^6/uL Hgb (13.5-17.5) g/dL Hct (40.0-50.0) % MCV (80-95) fL MCH (27.0-33.0) pg MCHC (32.0-36.0) % RDW (11.8-14.1) % Plt Count (130-400) 10^3/uL MPV (8.0-11.0) fL Immature Gran % % Neutrophils % % Lymphocytes % % Monocytes % % Eosinophils % % Basophils % % Nucleated RBC % (0.0-0.3) % Absolute Neutrophils (1.2-6.7) 10^3/uL Absolute Lymphocytes (1.2-3.4) 10^3/uL Absolute Monocytes (0.1-0.8) 10^3/uL Absolute Eosinophils (0.0-0.7) 10^3/uL Absolute Basophils (0.0-0.2) 10^3/uL PT 14.3 H (9.1-11.1) sec INR 1.5 H (0.9-1.1) Sodium (136-145) mmol/L Potassium (3.5-5.1) mmol/L Chloride (98-107) mmol/L Carbon Dioxide (21.0-32.0) mmol/L Anion Gap (3-11) mmol/L BUN (7-18) mg/dL Creatinine (0.70-1.30) mg/dL Est GFR (CKD-EPI 2020) (mL/min/1.73m2) Glucose (74-106) mg/dL Calcium (8.5-10.1) mg/dL Magnesium (1.8-2.4) mg/dL Total Bilirubin (0.2-1.0) mg/dL AST (15-37) U/L ALT (16-63) U/L Alkaline Phosphatase (46-116) U/L Ammonia (11-32) umol/L Troponin I (<or=76) ng/L Total Protein (6.4-8.2) g/dL Albumin (3.4-5.0) g/dL Urine Color Yellow (Yellow) Urine Clarity Clear (Clear) Urine pH 6.5 (5-8) Ur Specific [place] 1.015 (1.005-1.025) Urine Protein Negative (Neg-Trace) mg/dL Urine Ketones Trace H (Negative) mg/dL Urine Blood Negative (Negative) Urine Nitrite Negative (Negative) Urine Bilirubin Small H (Negative) Urine Urobilinogen >=8.0 H (Up to 0.2) mg/dL Ur Leukocyte Esterase Small H (Negative) Urine RBC 0-2 (0-2) HPF Urine WBC 10-20 H (0-5) HPF Ur Epithelial Cells Few (Negative) HPF Urine Crystals Negative (Negative) HPF Urine Bacteria Few (Negative) HPF Urine Casts Negative (Negative) LPF Urine Mucus Negative (Negative) Ur Culture Indicated? Yes Urine Glucose Negative (Negative) mg/dL Salicylates (<2.8) mg/dL Urine Opiates Screen Negative (Negative) Urine Methadone Screen Negative (Negative) Acetaminophen (10-30) ug/mL Ur Barbiturates Screen Positive A (Negative) Ur Tricyclics Screen Negative (Negative) Ur Amphetamines Screen Negative (Negative) U Benzodiazepines Scrn Positive A (Negative) Urine Cocaine Screen Negative (Negative) Ur THC Screen Positive A (Negative) Alcohol Metab Comm Pending Ethyl Alcohol (<10) mg/dL PEth 16:0/18.1 (POPEth) Pending PEth 16:0/18.2 (PLPEth) Pending Chlamydia DNA Probe Pending Chlamydia/GC DNA Source Pending N.gonorrhoeae DNA Probe Pending Add-On Test Request 12/29/24 12/28/24 12/28/24 Range/Units 06:07 Unknown 20:40 WBC 4.39 L (4.4-10.8) 10^3/uL RBC 4.33 L (4.36-5.78) 10^6/uL Hgb 13.7 (13.5-17.5) g/dL Hct 40.1 (40.0-50.0) % MCV 93 (80-95) fL MCH 31.6 (27.0-33.0) pg MCHC 34.2 (32.0-36.0) % RDW 15.5 H (11.8-14.1) % Plt Count (130-400) 10^3/uL MPV (8.0-11.0) fL Immature Gran % 0.2 % Neutrophils % 50.1 % Lymphocytes % 26.7 % Monocytes % 20.5 % Eosinophils % 1.4 % Basophils % 1.1 % Nucleated RBC % 0.0 (0.0-0.3) % Absolute Neutrophils 2.20 (1.2-6.7) 10^3/uL Absolute Lymphocytes 1.17 L (1.2-3.4) 10^3/uL Absolute Monocytes 0.90 H (0.1-0.8) 10^3/uL Absolute Eosinophils 0.06 (0.0-0.7) 10^3/uL Absolute Basophils 0.05 (0.0-0.2) 10^3/uL PT (9.1-11.1) sec INR (0.9-1.1) Sodium 139 (136-145) mmol/L Potassium 3.9 (3.5-5.1) mmol/L Chloride 104 (98-107) mmol/L Carbon Dioxide 25.1 (21.0-32.0) mmol/L Anion Gap 9.9 (3-11) mmol/L BUN 15 (7-18) mg/dL Creatinine 0.9 (0.70-1.30) mg/dL Est GFR (CKD-EPI 2020) 109.36 (mL/min/1.73m2) Glucose 83 (74-106) mg/dL Calcium 9.5 (8.5-10.1) mg/dL Magnesium 1.5 L (1.8-2.4) mg/dL Total Bilirubin 4.9 H (0.2-1.0) mg/dL AST 162 H (15-37) U/L ALT 64 H (16-63) U/L Alkaline Phosphatase 124 H (46-116) U/L Ammonia 35 H (11-32) umol/L Troponin I (<or=76) ng/L Total Protein 7.7 (6.4-8.2) g/dL Albumin 3.2 L (3.4-5.0) g/dL Urine Color (Yellow) Urine Clarity (Clear) Urine pH (5-8) Ur Specific [place] (1.005-1.025) Urine Protein (Neg-Trace) mg/dL Urine Ketones (Negative) mg/dL Urine Blood (Negative) Urine Nitrite (Negative) Urine Bilirubin (Negative) Urine Urobilinogen (Up to 0.2) mg/dL Ur Leukocyte Esterase (Negative) Urine RBC (0-2) HPF Urine WBC (0-5) HPF Ur Epithelial Cells (Negative) HPF Urine Crystals (Negative) HPF Urine Bacteria (Negative) HPF Urine Casts (Negative) LPF Urine Mucus (Negative) Ur Culture Indicated? Urine Glucose (Negative) mg/dL Salicylates (<2.8) mg/dL Urine Opiates Screen (Negative) Urine Methadone Screen (Negative) Acetaminophen (10-30) ug/mL Ur Barbiturates Screen (Negative) Ur Tricyclics Screen (Negative) Ur Amphetamines Screen (Negative) U Benzodiazepines Scrn (Negative) Urine Cocaine Screen (Negative) Ur THC Screen (Negative) Alcohol Metab Comm Ethyl Alcohol (<10) mg/dL PEth 16:0/18.1 (POPEth) PEth 16:0/18.2 (PLPEth) Chlamydia DNA Probe Chlamydia/GC DNA Source N.gonorrhoeae DNA Probe Add-On Test Request done 12/28/24 12/28/24 Range/Units 20:24 19:20 WBC 5.84 (4.4-10.8) 10^3/uL RBC 4.38 (4.36-5.78) 10^6/uL Hgb 13.9 (13.5-17.5) g/dL Hct 40.4 (40.0-50.0) % MCV 92 (80-95) fL MCH 31.7 (27.0-33.0) pg MCHC 34.4 (32.0-36.0) % RDW 15.2 H (11.8-14.1) % Plt Count 69 L (130-400) 10^3/uL MPV 12.2 H (8.0-11.0) fL Immature Gran % 0.3 % Neutrophils % 52.9 % Lymphocytes % 25.2 % Monocytes % 19.7 % Eosinophils % 0.7 % Basophils % 1.2 % Nucleated RBC % 0.0 (0.0-0.3) % Absolute Neutrophils 3.09 (1.2-6.7) 10^3/uL Absolute Lymphocytes 1.47 (1.2-3.4) 10^3/uL Absolute Monocytes 1.15 H (0.1-0.8) 10^3/uL Absolute Eosinophils 0.04 (0.0-0.7) 10^3/uL Absolute Basophils 0.07 (0.0-0.2) 10^3/uL PT 13.9 H (9.1-11.1) sec INR 1.4 H (0.9-1.1) Sodium 138 (136-145) mmol/L Potassium 3.7 (3.5-5.1) mmol/L Chloride 101 (98-107) mmol/L Carbon Dioxide 27.6 (21.0-32.0) mmol/L Anion Gap 9.4 (3-11) mmol/L BUN 22 H (7-18) mg/dL Creatinine 1.2 (0.70-1.30) mg/dL Est GFR (CKD-EPI 2020) 77.43 (mL/min/1.73m2) Glucose 95 (74-106) mg/dL Calcium 9.9 (8.5-10.1) mg/dL Magnesium (1.8-2.4) mg/dL Total Bilirubin 4.7 H (0.2-1.0) mg/dL AST 158 H (15-37) U/L ALT 71 H (16-63) U/L Alkaline Phosphatase 136 H (46-116) U/L Ammonia (11-32) umol/L Troponin I 25 26 (<or=76) ng/L Total Protein 8.4 H (6.4-8.2) g/dL Albumin 3.6 (3.4-5.0) g/dL Urine Color (Yellow) Urine Clarity (Clear) Urine pH (5-8) Ur Specific [place] (1.005-1.025) Urine Protein (Neg-Trace) mg/dL Urine Ketones (Negative) mg/dL Urine Blood (Negative) Urine Nitrite (Negative) Urine Bilirubin (Negative) Urine Urobilinogen (Up to 0.2) mg/dL Ur Leukocyte Esterase (Negative) Urine RBC (0-2) HPF Urine WBC (0-5) HPF Ur Epithelial Cells (Negative) HPF Urine Crystals (Negative) HPF Urine Bacteria (Negative) HPF Urine Casts (Negative) LPF Urine Mucus (Negative) Ur Culture Indicated? Urine Glucose (Negative) mg/dL Salicylates < 2.8 (<2.8) mg/dL Urine Opiates Screen (Negative) Urine Methadone Screen (Negative) Acetaminophen < 2 (10-30) ug/mL Ur Barbiturates Screen (Negative) Ur Tricyclics Screen (Negative) Ur Amphetamines Screen (Negative) U Benzodiazepines Scrn (Negative) Urine Cocaine Screen (Negative) Ur THC Screen (Negative) Alcohol Metab Comm Ethyl Alcohol < 3.0 (<10) mg/dL PEth 16:0/18.1 (POPEth) PEth 16:0/18.2 (PLPEth) Chlamydia DNA Probe Chlamydia/GC DNA Source N.gonorrhoeae DNA Probe Add-On Test Request 12/29/24 13:05 Urine Culture - Pending Urine - Reflex from Ua Intake and Output - 24 Hour Total 12/28/24 17:54 thru 12/29/24 19:43 Intake Total 2178.8461 Output Total 250 Balance 1928.8461 Weight 81.601 kg Intake: IV 2178.8461 Output: Urine 250 Other: Urine Color [place] Urine Appearance Clear Urine Odor Strong Comment 87, 153, 276 Falls Risk Assessment History of Falls No History 12/28/24 22:36 Contributing Factors Confusion,Medications 12/28/24 22:36 Ambulatory Aids Independent 12/28/24 22:36 Tubes/Lines With any additional score 12/28/24 22:36 Gait Evaluation No gait disturbance 12/28/24 22:36 Cognition Cognitive impairment 12/28/24 22:36 Fall Total Score 41 12/28/24 22:36 Level of Risk Moderate Risk 12/28/24 22:36 Problems DVT prophylaxis (Acute) Alcohol use disorder, severe, dependence (Acute) Alcoholic cirrhosis of liver (Acute) Urinary retention (Acute) Hepatic encephalopathy (Acute) Alcohol withdrawal delirium (Acute) Left leg swelling (Acute) Notes 12/29/24 14:34 Nursing Notes by Roseline Ayala Nursing Note: This nurse rounded at 1145 and pt has both his hands and right foot cuffed by DOC, redness noted on left wrist and right ankle, no change. Rounded again at 1238 and pt still has both hands and right foot cuffed by DOC, no change to already observed redness or new skin issues from cuffs. This nurse rounded at 1307 and 1419 pt continues to have both hands and right foot cuffed by DOC, no new skin issues noted by cuffs other then already observed redness. Initialized on 12/29/24 14:34 - END OF NOTE 12/29/24 10:34 Nursing Notes by Roseline Ayala Nursing Note: This nurse rounded at 1030 and pt was noted to be asleep and comfortable. The DOC has removed one cuff off the left foot, at this time his other three limbs are still cuffed to the bed. No other skin changes noted at wrists and ankles, just redness at left wrist and right ankle. The DOC was able to reposition patient to offset some of the pressure on the cuffs. Initialized on 12/29/24 10:34 - END OF NOTE 12/29/24 10:07 Nursing Notes by Roseline Ayala Nursing Note: 0958 this nurse rounded and noted pt to still have both hands and feet cuffed to bed by DOC. VSS when taken during rounding, no pain reported by pt. Some redness noted on left wrist and right ankle. This nurse requested DOC to see if they can reposition cuffs to alleviate pressure on skin at wrists and ankles. Initialized on 12/29/24 10:07 - END OF NOTE 12/29/24 09:46 Nursing Notes by Roseline Ayala Nursing Note: This nurse rounded with rooming house operator at 0756 for change of shift. At this time pt was noted to have both hands and feet cuffed to bed by DOC, skin appears intact and no issues noted at this time. At 0824 this nurse rounded again and administered phenobarb for elevated CIWA score (see CIWA documentation), pt is still noted to have both hands and feet cuffed to bed by DOC, skin still appears intact with no issues. At 0902 this nurse rounded again and pt is noted to be resting at this time, both hands and feet are cuffed to bed by DOC. At 0944 this nurse rounded again and administered another dose of phenobarb for elevated CIWA (see CIWA documentation) and pt is still noted to have hands and feet cuffed to bed by DOC, some redness noted at wrists but no other skin breakdown noted at this time. Initialized on 12/29/24 09:46 - END OF NOTE v v v v v v v v v Sending and/or Receiving Nurses: Please use comment section below to note any information pertinent to the patient hand-off not included above. Information / Comments: Report received from: kristina Kirk
--- NOTE | 2024-12-29 19:57 | NUR.NOTE ---
Nursing Note: See bedside rounding documentation, the pt continues to have both hands cuffed to bed and just recently his left leg has been cuffed to the bed and his right leg is currently not cuffed to bed. Redness noted on left wrist and right ankle. Right ankle appears to have some redness and small skin break.
[2024-12-29] MEDS: cefTRIAXone 1 GM/50 ML BAG IVPB (20:43)
--- NOTE | 2024-12-29 21:54 | NUR.NOTE ---
Nursing Note: Pts cloths sent to laundry, Officers made aware
[2024-12-30] VITALS (158 sets, daily range): BP systolic 68–117; BP diastolic 39–82; PULSE 57–113; RESP 10–37; TEMP 36.9–37.2; O2SAT 90–99
[2024-12-30] MEDS: PHENobarbital 130 MG/ML VIAL IVP (00:34)
[2024-12-30] MEDS: DEXTROSE 5%-LACTATED RINGERS 1,000 ML 125 ML IV ×2 (04:16→16:13)
[2024-12-30] MEDS: LORazepam 20 MG/10 ML VIAL IVP (04:57)
[2024-12-30 07:03] LABS: Abs Immature Grans 0.01 10^3/uL (0.0-0.06); HCT 38.4 % (40.0-50.0); HGB 13.2 g/dL (13.5-17.5); Immature Grans % 0.3 %; MCH 32.4 pg (27.0-33.0); MCHC 34.4 % (32.0-36.0); MCV 94 fL (80-95); MPV 12.1 fL (8.0-11.0); RBC 4.08 10^6/uL (4.36-5.78); RDW 15.2 % (11.8-14.1); RDW-SD 52.7 fL; WBC 3.94 10^3/uL (4.4-10.8)
[2024-12-30 07:11] LABS: INR 1.4 (0.9-1.1); Prothrombin Time 13.7 sec (9.1-11.1)
[2024-12-30] MEDS: THIAMINE 500 MG in Normal Saline 100 ML 200 MG IVPB ×3 (07:16→22:55)
[2024-12-30 07:20] LABS: ALT 57 U/L (16-63); AST 122 U/L (15-37); Albumin 2.6 g/dL (3.4-5.0); Alkaline Phosphatase 106 U/L (46-116); Anion Gap 9.7 mmol/L (3-11); BUN 7 mg/dL (7-18); Bilirubin, Total 3.6 mg/dL (0.2-1.0); CO2 26.3 mmol/L (21.0-32.0); Calcium 8.3 mg/dL (8.5-10.1); Chloride 107 mmol/L (98-107); Estimated GFR 109.36 (mL/min/1.73m2); Glucose 104 mg/dL (74-106); Magnesium 1.6 mg/dL (1.8-2.4); Potassium 3.2 mmol/L (3.5-5.1); Sodium 143 mmol/L (136-145); Total Protein 6.7 g/dL (6.4-8.2)
[2024-12-30 07:24] LABS: Platelet Count 55 10^3/uL (130-400); RBC Morphology Normal
--- NOTE | 2024-12-30 08:40 | PT.INNT ---
PT Notes Visit Reasons: ETOH Withdrawal PT Consult unable to be completed due to Pt transferred to ICU due to change in medical condition.Will need a new PT Consult when medically appropriate for evaluation and treatment.
[2024-12-30] MEDS: MAGNESIUM SULFATE 2 GM/50 ML BAG IV_INF (09:15)
--- NOTE | 2024-12-30 10:09 | CMPROGNOTE_ITS ---
Date of service: 12/30/24 Time of Service: 10:09 Care Management Progress Note Progress Note Text Progress Note Text: Regan was sitting up in bed eating lunch when CM met with him. He was awake and alert and able to engage with CM. Regan reported that he is from the [facility]. He is and has 2 children who live with their mother, however, through a court order, he is not allowed to see his children. 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 He has been incarcerated for about 2 months and hopes to be released in May, or sooner. Clinically, Regan is doing much better today. He had maxed out on the phenobar bital protocol but has not required any additional medication today. Per his nurse, the only signs of withdrawal at this time are hand tremors; the hallucinations and other symptoms are gone. Discharge Potential Discharge Needs: Other (return to DOC) Anticipated Barriers to Discharge: Medical Status Patient/Family Education Needs: Review discharge instructions, discuss Ask Me Three Transportation: Facility Transport Plan: [facility] when medically cleared. He will follow up with facility providers and plan of care and transport via facility vehicle with corrections officers. CM will continue to assess for discharge needs. Social Determinants of Health Screening Will the Patient Participate in the Screening?: Unable to obtain
[2024-12-30 12:14] LABS: Chlamydia Result Negative (Negative); GC Result Negative (Negative)
[2024-12-30] MEDS: Lactulose 20 GM/30 ML CUP PO (13:28)
[2024-12-30] MEDS: Potassium Chloride 20 MEQ TABCR 40 MEQ PO ×2 (13:28→20:27)
[2024-12-30] MEDS: Normal Saline Flush 10 ML SYR IVP ×2 (13:30→20:27)
[2024-12-30] MEDS: Tamsulosin 0.4 MG CAPCR PO (13:31)
[2024-12-30] MEDS: Enoxaparin 40 MG/0.4 ML SYR SC (16:10)
--- NOTE | 2024-12-30 16:39 | W.PM.PROGNOT ---
Date of Service Date of service: 12/30/24 Time of Service: 16:39 Assessment and Plan Assessment and plan (1) Hepatic encephalopathy: Status: Acute Assessment and plan: I agree this is likely hepatic encephalopathy with delirium, hyperammonemia, known longstanding EtOH abuse Lactulose 20 TID to produce 3 stools per day Treatign UTI, no significant ascites to suggest SBP risk. Urine Cx NGTD x 24, stop 12/31 if remains negative continue to monitor. I'm not sure he is ready for discharge, but can step back down from ICU status not that mental status clearing. (2) Alcohol withdrawal delirium: Status: Acute Assessment and plan: He is now at 5 days, leaving the EtOH withdrawal window, s/p phenobarbital. Initially he was responsive to benzodiazepines but on the floor became more agitated and phenobarbital was started Intensive thiamine in case wernickes contributing Now eating/drinkins so can stop fluids EtOH negative on admission, sent phopshatidylethanol to confirm history of ongoing heavy drinking (3) Urinary retention: Status: Acute Assessment and plan: Per nursing report, flores could not be placed due to thick pus despite ultrasound showing 400 retained Flores was placed and reportedly pus and thick cloudy urine were expressed 12/28 UA does show pyuria, will treatment started 12/29 given MS changes, ceftriaxone Also started on tamsulosin. monitor urine output Given degree of milky discharge initially, urine also sent for gc/chl probe, pending (4) Alcoholic cirrhosis of liver: Status: Acute Assessment and plan: I did confirm through VITL that he has known cirrhosis Elevated INR and bilirubin thus c/w exacerbation of chronic liver failure than acute alcoholic hepatitis. Either way, Johnathandrey's 19 c/w good prognosis. Give vitamin K as with poor nutrition this may help INR Clearly improving as of 12/30. Continue to monitor. He should likely be started on carvedilol prior to discharge as low plts c/w portal HTN (5) Left leg swelling: Status: Acute Assessment and plan: LLE u/s negative for DVT. This is chronic related to traumatic surgery on that leg. (6) Alcohol use disorder, severe, dependence: Status: Acute Assessment and plan: MS improving, address medical options prior to discharge. (7) DVT prophylaxis: Status: Acute Assessment and plan: platelets low, but >50 and with cirrhosis clot risk is higher. Treat with enoxaparin, stop if plts <50 Subjective Subjective Patient reports: voiding w/o difficulty and diarrhea (having loose stools with lactulose); denies vomiting, shortness of breath or fever Interval history since last seen: Events: Given lorazepam for agitation/anxiety overnight, but did not get started on precedex No additoinal phenobarbital 12/30, CIWA 1 this afternoon 5 days out from last EtOH K+ and Mg supplemented Feels better. Less anxious today. Hungry, eating well. He did have lightheadedness after stooling this afternoon. No chest pain or SOB Exam Narrative Exam Narrative: General: Cuffed loosely to bed at 3 points per corrections. Now alert and oriented x 3 but poor memory for recent events. In no acute distress HEENT: Normocephalic, atraumatic CV: RRR, no murmur. nl cap refill, edema 1+ left, trace right Resp: CTAB, normal effort Abd: soft, not distended, no clear fluid wave or masses, not tender. Skin: no large bruises/rashes, slight prominence of periumbilical veins. +gynocomastia Neuro: No tremor, no focal deficits Objective Last Vital Signs Temp 37.2 C 12/30/24 16:10 Pulse 75 12/30/24 16:30 Resp 25 H 12/30/24 16:30 BP 108/60 12/30/24 16:34 Pulse Ox 97 12/30/24 16:30 Laboratory Results - last 24 hr 12/29/24 12/30/24 13:05 05:43 WBC 3.94 L RBC 4.08 L Hgb 13.2 L Hct 38.4 L MCV 94 MCH 32.4 MCHC 34.4 RDW 15.2 H Plt Count 55 L MPV 12.1 H Immature Gran % 0.3 Neutrophils % 64.4 Lymphocytes % 18.0 Monocytes % 13.5 Eosinophils % 2.5 Basophils % 1.3 Nucleated RBC % 0.0 Absolute Neutrophils 2.54 Absolute Lymphocytes 0.71 L Absolute Monocytes 0.53 Absolute Eosinophils 0.10 Absolute Basophils 0.05 RBC Morphology Normal PT 13.7 H INR 1.4 H Sodium 143 Potassium 3.2 L Chloride 107 Carbon Dioxide 26.3 Anion Gap 9.7 BUN 7 Creatinine 0.9 Est GFR (CKD-EPI 2020) 109.36 Glucose 104 Calcium 8.3 L Magnesium 1.6 L Total Bilirubin 3.6 H AST 122 H ALT 57 Alkaline Phosphatase 106 Total Protein 6.7 Albumin 2.6 L Chlamydia DNA Probe Negative Chlamydia/GC DNA Source Not Applicable N.gonorrhoeae DNA Probe Negative PAWSS Have you Been Recently Intoxicated or Drunk Within the Last 30 days?: Yes Have you Ever Experienced Previous Episodes of Alcohol Withdrawal?: Yes Have you ever Experienced Withdrawal Seizures?: Yes Have you ever Experienced Delirium Tremens(DT)s?: Yes Have you ever undergone Alcohol Rehabilitation Treatment (i.e, inpt ot outpatient treatment programs)?: No Have you ever Experienced Blackouts?: Yes Have you ever Combined Alcohol with other Downers within the last 90 days?: No Have you ever Combined Alcohol with any other Substance of Abuse during the last 90 days?: No Positive Blood Alcohol level on Presentation? [PCS.BAL]: Yes Evidence of Increased Autonomic Activity (i.e. HR>120, tremor, sweating, agitation, nausea)?: Unable to Obtain Result: 6 Time Spent with Patient Time Spent with Patient: >50 minutes Time was spent: preparing to see the patient(eg.review tests), obtaining and/or reviewing separately otained hiistory, ordering medications,tests, procedures, referring, communicating with other health health care facility administrator, indepentently interpreting results, counseling the patient and care coordination
[2024-12-30] MEDS: cefTRIAXone 1 GM/50 ML BAG IVPB (20:09)
[2024-12-31] VITALS (24 sets, daily range): BP systolic 94–119; BP diastolic 63–86; PULSE 63–107; RESP 15–26; TEMP 36.8–37.2; O2SAT 94–99
[2024-12-31] MEDS: Lactulose 20 GM/30 ML CUP PO ×2 (00:30→09:19)
[2024-12-31 06:46] LABS: Abs Immature Grans 0.01 10^3/uL (0.0-0.06); HCT 45.8 % (40.0-50.0); HGB 15.4 g/dL (13.5-17.5); Immature Grans % 0.4 %; MCH 31.9 pg (27.0-33.0); MCHC 33.6 % (32.0-36.0); MCV 95 fL (80-95); MPV 11.8 fL (8.0-11.0); RBC 4.83 10^6/uL (4.36-5.78); RDW 15.7 % (11.8-14.1); RDW-SD 54.4 fL; WBC 2.78 10^3/uL (4.4-10.8)
[2024-12-31] MEDS: THIAMINE 500 MG in Normal Saline 100 ML 200 MG IVPB ×2 (06:51→13:50)
[2024-12-31 07:06] LABS: ALT 68 U/L (16-63); AST 124 U/L (15-37); Albumin 3.0 g/dL (3.4-5.0); Alkaline Phosphatase 150 U/L (46-116); Anion Gap 9.9 mmol/L (3-11); BUN 4 mg/dL (7-18); Bilirubin, Total 2.9 mg/dL (0.2-1.0); CO2 25.1 mmol/L (21.0-32.0); Calcium 8.7 mg/dL (8.5-10.1); Chloride 101 mmol/L (98-107); Estimated GFR 96.37 (mL/min/1.73m2); Glucose 80 mg/dL (74-106); Magnesium 1.6 mg/dL (1.8-2.4); Potassium 4.0 mmol/L (3.5-5.1); Sodium 136 mmol/L (136-145); Total Protein 7.9 g/dL (6.4-8.2)
[2024-12-31 07:21] LABS: Platelet Count 58 10^3/uL (130-400)
--- NOTE | 2024-12-31 08:12 | PDOC.CMPRO ---
Date of service: 12/31/24 Time of Service: 08:13 Care Management Progress Note Discharge Potential Discharge Needs: Other (DOC) Anticipated Barriers to Discharge: None Identified Patient/Family Education Needs: Review discharge instructions, discuss Ask Me Three Transportation: Facility Transport Plan: Regan will return to the [facility] when medically cleared. He will follow up with facility providers and plan of care and transport via facility vehicle with corrections officers. CM will continue to assess for discharge needs. Social Determinants of Health Screening Will the Patient Participate in the Screening?: Unable to obtain
[2024-12-31] MEDS: Tamsulosin 0.4 MG CAPCR PO (09:19)
[2024-12-31] MEDS: Potassium Chloride 20 MEQ TABCR 40 MEQ PO (09:19)
--- NOTE | 2024-12-31 09:26 | W.NUTRFU ---
Date of service: 12/31/24 Time of Service: 09:26 Nutrition Note NOTE: Chart reviewed. Pt with high dose thiamine ordered for etoh w/d. would suggest folate lab. Mag repleted yesterday - 1.6 today. Pt with etoh cirrhosis. Nutrition/eating dictated by his current situation as inmate. Rec mod protein intnake with high ammmonia level 2 days ago and will need to adjust depending on progression. Pt eating well - wt stable this admission. Will continue to monitor nutrition related labs, intake, weight. Time Spent in Nutritional Counseling and Treatment: 0
[2024-12-31] MEDS: Normal Saline Flush 10 ML SYR IVP (11:41)
[2024-12-31] MEDS: MAGNESIUM SULFATE 2 GM/50 ML BAG IV_INF (11:41)
--- NOTE | 2024-12-31 13:29 | IN_ITS ---
PT Notes Visit Reasons: ETOH Withdrawal Physical Therapy Inpatient Initial Evaluation Date: 12/31/2024 Referring Doctor: Dr. Ba PT Orders: PT CONSULT: Evaluation for assistive device, safety assessment Precautions: Standard, fall risk, EtOH withdrawal Patient Profile/Admitting Diagnosis: Patient is a 44-year-old male presentedSe with 3 days of worsening delirium since his last EtOH; he was taken to long term on Dec 25. Pt diagnosed with encephalopathy, delerium, urinary retentions. Pt admitted to med surg unit then change in condition . He was transferred to the ICU 12/29 as he was requiring intensive nursing and maxing out on phenobarbital, but by 12/30 he was improving.. PT consult placed in anticipation of d/c PMHX:Urinary retention (Acute) Hepatic encephalopathy (Acute) Alcohol withdrawal delirium (Acute) Medical clearance for incarceration (Acute) Left leg swelling (Acute) Social History/Home Situation: Patient currently in correctional facility Equipment Owned/DME: No equipment at home, issued FWW Subjective: Patient states he is ready to get moving but is unsure if he is ready to leave the hospital yet. Patient initially declined use of FWW however on reapproach prior to discharge patient was agreeable to use of FWW Objective: [] General Observation: Young male shackled to bed, IV infusing telemetry in place and 2 correctional officers present Mental Status: Alert and oriented x 4, cooperative, able to follow instructions, slightly impulsive with transitions agreeable to participate in evaluation Pain: Denied ROM: [] Right Upper Extremity: WFL Left Upper Extremity: WFL Right Lower Extremity: WFL except dorsiflexion to neutral Left Lower Extremity: WFL Strength: Impaired motor control/coordination bilateral lower extremities ataxic/tremulous movements during functional tasks Right Upper Extremity: 5/5 Left Upper Extremity: 5/5 B Lower Extremity: Hips 3/5, knees 4/5, ankle 4/5 Sensation: Intact Bed Mobility/Transfers: [] Supine to sit Independent Sit to stand independent Stand to sit independent Bed to chair SBA Gait: Amb with B ankles shackled with CGA 180 feet wide NONA, sway to trunk anterior posterior, BLE ataxic . Patient initially refused FWW then agreeable to having FWW to improve independence within correctional facility. Balance: [] Static Sitting: Normal Dynamic Sitting: Good plus Static Standing: Fair without upper extremity support; good plus with upper extremity support Dynamic Standing: Fair minus without upper extremity support ;good with 1 upper extremity Special Tests: [] Mobility Limitations Standardized Measure [] [facility]-P[facility] 6 clicks Basic Mobility Inpatient Short Form: [] Raw Score: 20 CMS Score: 35.83% deficit Informed Consent/Education: Patient instructed in purpose of PT consult. Treatment: 06[address] functional mobility training with FWW to provide bilateral upper extremity support to improve trunk stability to allow for improved ambulation. Patient functional ambulation limited by shackles to bilateral ankles due to incarceration. Step length limited by length of shackles. Patient with excessive use of dorsiflexors noted appears in an attempt to manage chain/shackles. Patient with improved quality of functional mobility with FWW as compared to no assistive device Assessment: Patient is a 44-year-old male who presents with clinical signs and symptoms consistent with current/admitting diagnoses that have resulted to mobility limitations, gait instability, generalized weakness, and impairment of motor control as demonstrated by the following impairment level findings: 1. Decreased strength/motor control to BLE major muscle groups 2. Impaired standing balance 3. impaired right ankle DF 4. Impaired functional activity tolerance Impairments are contributing to the following functional limitations: 1. Inability to safely ambulate without assistive device 2. Increase completion time for mobility ADL performance 3. Increased fall risk Patient is assessed as a low complexity based on the following: History: 44-year-old male with impairment level findings, functional limitations, and past medical history as indicated above Examination: Demonstrable impairment in strength, balance, and mobility level with underlying impairments and functional limitations as documented above Presentation: Stable Decision Making: Low Goals: N/A. PT evaluation and 1-2 treatment sessions only for functional mobility training using recommended AD and for HEP instruction. Plan of Care/Treatment Plan: N/A. PT evaluation and 1-2 treatment session only for functional mobility training using recommended AD and for HEP instruction. DISCHARGE RECOMMENDATIONS:Return to Correction facility with TREATMENT CODE/TIME: 22150, 61703/ [id number] Thank you for the opportunity to participate in the care of this patient. Manuela Marina, PT [facility]
--- NOTE | 2024-12-31 14:27 | CMDISCH_ITS ---
Date of service: 12/31/24 Time of Service: 14:28 LACE Index Scoring Tool Questions: Length of Stay (in days): 3 Was the patient admitted via the E.D.?: Yes Comorbidities: Liver or Renal Disease E.D. Visits: 2 Answers: Total Score: 13 Risk of Readmission: High Risk Care Management Discharge Plan Reason for Hospitalization: hepatic encephalopathy Discharge Plan: Regan will return to [facility] later today. He will follow up with facility providers and plan of care and transport with corrections officers.
--- NOTE | 2024-12-31 14:29 | W.PM.DS.N ---
Date of service: 12/31/24 Time of Service: 14:29 DS: Diagnosis Discharge Diagnosis (1) Hepatic encephalopathy: Status: Acute (2) Alcohol withdrawal delirium: Status: Acute (3) Urinary retention: Status: Acute (4) Alcoholic cirrhosis of liver: Status: Acute (5) Left leg swelling: Status: Acute (6) Alcohol use disorder, severe, dependence: Status: Acute Discharge Plan Disposition [facility] Disposition: [facility] Condition: Good Discharge Details Reason For Visit: ETOH Withdrawal Admit Date/Time: 12/28/24 21:50 Admit Provider: Shay Ulrich Attending Provider: Shay Ulrich Primary Care Provider: Unknown,Unknown Hospital Course Hospital Course: 44 yo M with history of alcohol use disorder and alcoholic cirrhosis with admissions at [facility] for complicated alcohol withdrawal who presented in corrections custody with acute delerium on 12/27. Per report he was drinking heavily until 12/25 when he was arrested. He was talking to people who were not there and speaking in garbled sentences. He was tachycardic and tachypneic and his bilirubin and INR were up from previous levels at 1.4 and 4.7. His blood alcohol was negative at that point. Ammonia was elevated at 35. He was initially treated with diazepam, then transitioned to phenobarbital for increasing agitation on [facility] protocol. He was also treated with lactulose for concern for element of hepatic encephalopathy. High dose thiamine was also given for possible Wernickes. He was transferred to the ICU 12/29 as he was requiring intensive nursing and maxing out on phenobarbital, but by 12/30 he was improving. His bilirubin and AST decreased and INR and platelets were stable. On the morning of discharged, he was appropriately interactive, alert, and oriented. He had urinary retention. Initial urine was cloudy, u/a was sent and he was treated with ceftriaxone, but this was stopped when the culture returned negative. GC/Chlamydia PCR was also negative. He was started on tamsulosin to help him urinate. This could be stopped as an outpatient at discretion of primary care. Swelling of LLE was noted. Doppler u/s negative for DVT. When his MS improved he was able to tell us that this is chronic from trauma to that groin. He should be offered behavioral treatement for alcohol use disorder. With cirrhosis naltrexone and disulfuram and not good options, but acamprosate could be used. Vitamins recommended due to alcohol use disorder as below. His magnesium was supplemented, and oral magnesium should be continued. His lactulose should be titrated to have 2-3 soft/loose stools per day. He was evaluated by PT prior to discharge who noted some ongoing ataxia. It is unclear if this is different from his baseline. The patient refused a walker. She should have an assist with walking more than in his room. Home Meds and New Rx's Prescriptions: New tamsulosin 0.4 mg Capsule 0.4 mg PO DAILY Qty: 30 0RF lactulose 10 gram/15 mL Solution 20 g PO BID Qty: 200 0RF folic acid 1 mg tablet 1 mg PO DAILY 30 Days Qty: 30 0RF multivitamin Tablet 1 tab PO DAILY Qty: 90 0RF magnesium oxide 500 mg capsule 500 mg PO DAILY Qty: 90 0RF thiamine HCl (vitamin B1) 100 mg tablet 100 mg PO DAILY Qty: 30 0RF Discharge Instructions Instructions: Hepatic encephalopathy Additional Instructions: Your liver function is getting worse. Your liver will fail and you will from this if you don't stop drinking Because your liver is getting worse, toxins build up in your system and affect your brain. You should take lactulose liquid enough to have 2-3 soft to loose bowel movements a day, which will help clear the ammonia and other toxins. You had trouble emptying your bladder when you were sick. Tamsulosin is for this. Activity:: Activity as Tolerated Equipment/Supplies:: No Equipment Needed Diet:: As Tolerated Discharge Orders Discharge Orders: Discharge Order (Routine); Ordered 12/31/24 Ordered By: Bernardino Ba DS: Summary Time Spent with Patient providing and/or coordinating discharge services: Greater than 30 minutes Status at Discharge Functional status at discharge: uses cane/walker Overall status at discharge: patient is progressing back to baseline Mental Status: mental status grossly normal Speech and Movement: speech and movement normal Mood: congruent mood Affect: normal affect Exam Narrative Exam Narrative: General: Cuffed loosely to bed at 3 points per corrections. Now alert and oriented x 3 but poor memory for recent events. In no acute distress CV: RRR, no murmur. nl cap refill, edema 1+ left, trace right Resp: CTAB, normal effort Abd: soft, not distended, no clear fluid wave or masses, not tender. Skin: no large bruises/rashes, slight prominence of periumbilical veins. +gynocomastia Neuro: No tremor, no focal deficits Psych Mental Status: mental status grossly normal Speech and Movement: speech and movement normal Mood: congruent mood Affect: normal affect DS: Data Vitals/I&O Vitals and I&O: Vital Signs Temperature 37 C 12/31/24 12:29 Temperature Source Temporal Artery Scan 12/31/24 12:29 Pulse 77 12/31/24 12:01 Pulse Rhythm Regular 12/28/24 22:36 Pulse 73 12/31/24 12:01 Respiratory Rate 21 12/31/24 12:01 Respiratory Effort Normal, Non-Labored 12/28/24 22:36 Respiratory Depth Normal 12/28/24 22:36 Respiratory Pattern Normal 12/28/24 22:36 Blood Pressure 100/64 12/31/24 12:01 Blood Pressure Mean 76 12/31/24 12:01 Pulse Oximetry 99 12/31/24 08:53 Oxygen Delivery Method Room Air 12/29/24 19:41 Oxygen Flow Rate 0 12/29/24 19:41 Pain Level 0 12/29/24 16:20 Comment Patient back in bed. 12/30/24 15:47 Intake & Output 12/30/24 12/31/24 12/31/24 23:59 11:59 23:59 Intake Total 2665.000 / 5442.917 3850 / 4550 700 / 4550 Output Total 1875 / 2475 1650 / 2700 1050 / 2700 Balance 790.000 / 2967.917 2200 / 1850 -350 / 1850 Weight 84.8 kg Intake: IV 965.000 / 2742.917 260 / 310 50 / 310 Oral 1700 / 2700 3590 / 4240 650 / 4240 Output: Urine 1575 / 2175 1650 / 2700 1050 / 2700 Stool 300 / 300 Other: Urine Color Dark Dayna Straw Straw Urine Appearance Clear Clear Clear Urine Odor Strong Normal Normal Comment Pre void bladder scan was for 662 cc's + missed urinal - small amount unmeasured on floor Stool Size Moderate Stool Characteristics Liquid Brown Data Completed and Pending Labs on day of discharge: Labs from last 24 hours 12/31/24 05:26 WBC 2.78 L RBC 4.83 Hgb 15.4 D Hct 45.8 MCV 95 MCH 31.9 MCHC 33.6 RDW 15.7 H Plt Count 58 L MPV 11.8 H Immature Gran % 0.4 Neutrophils % 47.4 Lymphocytes % 29.9 Monocytes % 17.3 Eosinophils % 3.2 Basophils % 1.8 Nucleated RBC % 0.0 Absolute Neutrophils 1.32 Absolute Lymphocytes 0.83 L Absolute Monocytes 0.48 Absolute Eosinophils 0.09 Absolute Basophils 0.05 Sodium 136 Potassium 4.0 Chloride 101 Carbon Dioxide 25.1 Anion Gap 9.9 BUN 4 L Creatinine 1.0 Est GFR (CKD-EPI 2020) 96.37 Glucose 80 Calcium 8.7 Magnesium 1.6 L Total Bilirubin 2.9 H AST 124 H ALT 68 H Alkaline Phosphatase 150 H Total Protein 7.9 Albumin 3.0 L PFSH All Active Problems (Updated 12/29/24 @ 15:55 by Bernardino Ba) DVT prophylaxis (Acute) Alcohol use disorder, severe, dependence (Acute) Alcoholic cirrhosis of liver (Acute) Urinary retention (Acute) Hepatic encephalopathy (Acute) Alcohol withdrawal delirium (Acute) Medical clearance for incarceration (Acute) Left leg swelling (Acute) Social History Smoking/Tobacco Use Status: Never Smoking risk assessment performed?: Yes Alcohol Intake: current Alcohol Intake frequency: 0-2 drinks per day Substance use type: marijuana Housing: other Do you feel safe at home: Yes Do you feel safe in your relationship?: Yes Time Spent with Patient Time Spent with Patient: 45-69 minutes Time was spent: preparing to see the patient(eg.review tests), obtaining and/or reviewing separately otained hiistory, ordering medications,tests, procedures, referring, communicating with other health home care administrator, indepentently interpreting results, counseling the patient and care coordination
[2025-01-03 13:55] LABS: PEth 16:0/18:1(POPEth) 1530 ng/mL (Cutoff: 10); PEth 16:0/18:2(PLPEth) 1423 ng/mL (Cutoff: 10); PEth Interpretation Positive.
== END 2024-12-31 16:07 | DRG 897 ==
LOC: ER 21:53 → MS 22:27 → ICU 12-29 19:42
PROVIDERS: Admitting Provider Family Medicine; Emergency Provider General Practice; Responsible Provider Family Medicine; Visit Provider Family Medicine
DX: F10.231 Alcohol dependence with withdrawal delirium (principal); K76.82 Hepatic encephalopathy; R33.9 Retention of urine, unspecified; K70.30 Alcoholic cirrhosis of liver without ascites; M79.89 Other specified soft tissue disorders; Y90.0 Blood alcohol level of less than 20 mg/100 ml; F12.90 Cannabis use, unspecified, uncomplicated; D69.6 Thrombocytopenia, unspecified
CPT/HCPCS: 00123; 36415; 80053; 80307; 80321; 87491; 87591; 93005; 96374; 97116; 97161; 99285; J1650; 80320; 80329; 81003; 81015; 82140; 83735; 84484; 85025; 85610; 87086; 93010; 93971; 99222; 99233; 99239; J0696; J2060; J2560; J3360; J3411; J3430; J3475

== ENCOUNTER 2025-01-03 13:41 | Emergency (ER) | payer MEDICAID, SELFPAY ==
[2025-01-03] VITALS (9 sets, daily range): BP systolic 102–127; BP diastolic 60–83; PULSE 58–72; RESP 16–17; TEMP 36.6; O2SAT 97–100
--- NOTE | 2025-01-03 13:30 | RT.EKG_ITS ---
APPROVED REPORT Exam: Resting ECG Reason for Exam: Dizziness Patient Location: E HR:75 bpm ECG Measurements Heart Rate 75 AXIS AK 166 P 62 QRSd 97 QRS 61 QT 410 T 38 QTc 457 Conclusion Sinus rhythm...normal P axis, V-rate 60- 99
--- NOTE | 2025-01-03 13:45 | W.ED.GENAD ---
Discharge Plan Discharge Details Chief Complaint: Dizzy/Sync Primary Care Provider: Unknown,Unknown ED Provider: Brianna Purcell Home Meds and New Rx's Prescriptions: No Action tamsulosin 0.4 mg Capsule 0.4 mg PO DAILY Qty: 30 0RF lactulose 10 gram/15 mL Solution 20 g PO BID Qty: 200 0RF folic acid 1 mg tablet 1 mg PO DAILY 30 Days Qty: 30 0RF multivitamin Tablet 1 tab PO DAILY Qty: 90 0RF thiamine HCl (vitamin B1) 100 mg tablet 100 mg PO DAILY Qty: 30 0RF magnesium oxide 400 mg magnesium tablet 400 mg PO DAILY HPI General Mode of arrival: EMS. Date/Time Provider Initiated Documentation: 01/03/25 13:44. Limitations to Documentation: no limitations. Information obtained by: patient, police, EMS, RN notes reviewed and old records reviewed. HPI Narrative: 44-year-old male presents to the ER via EMS with a chief complaint of dizziness and orthostatic vital signs, blood pressure soft with a systolic in the 90s, patient was recently discharged from the hospital for hepatic encephalopathy and alcohol withdrawal on the . He has been incarcerated since. Patient reports headache and decreased p.o. intake, patient was discharged with prescription for lactulose he denies any diarrhea reports that he had a formed bowel movement today. Denies any chest pain abdominal pain or vomiting. Related Data Home Medications ?Medication ?Instructions ?Recorded ?Confirmed folic acid 1 mg tablet 1 mg PO DAILY 30 days #30 tabs 12/31/24 01/03/25 lactulose 10 gram/15 mL oral 20 g (30 mL) PO BID #200 mL 12/31/24 01/03/25 solution multivitamin 1 tab PO DAILY #90 tabs 12/31/24 01/03/25 tamsulosin 0.4 mg capsule 0.4 mg PO DAILY #30 caps 12/31/24 01/03/25 thiamine HCl (vitamin B1) 100 mg 100 mg PO DAILY #30 tabs 12/31/24 01/03/25 tablet magnesium oxide 400 mg PO DAILY 01/03/25 01/03/25 Previous Rx's ?Medication ?Instructions ?Recorded folic acid 1 mg tablet 1 mg PO DAILY 30 days #30 tabs 12/31/24 lactulose 10 gram/15 mL oral 20 g (30 mL) PO BID #200 mL 12/31/24 solution multivitamin 1 tab PO DAILY #90 tabs 12/31/24 tamsulosin 0.4 mg capsule 0.4 mg PO DAILY #30 caps 12/31/24 thiamine HCl (vitamin B1) 100 mg 100 mg PO DAILY #30 tabs 12/31/24 tablet Allergies Allergy/AdvReac Type Severity Reaction Status Date / Time No Known Allergies Allergy Unverified 01/03/25 13:52 General Stated Complaint: Dizzy/Sync PIPPA: 3 Review of Systems All systems reviewed & are unremarkable except as noted in HPI and below Constitutional Constitutional: Reports headache(s) ENT Ears, Nose, Mouth, and Throat: Reports dizziness and Reports headache(s) Neurologic Neurologic: Reports dizziness and Reports headache(s) Exam Narrative Exam Narrative: Constitutional: Alert and oriented x3. Appears stated age. Normal body habitus. Head: Normocephalic, no trauma. Eyes: Pupils PERRL, Red reflex noted, EOM's intact. Eyelids symmetrical without lesions, discharge, or swelling. Chest: RRR, Normal S1, S2, distal pulses intact. Resp: Lungs clear to auscultation bilaterally, no wheezes, rales, or rhonchi. Abdomen: Soft, non-distended, Normoactive bowel sounds all 4 quads. Musculoskeletal: Unable to assess gait, Moves all 4 extremities without difficulty. Skin: No suspicious rashes or lesions. Capillary refill less than 2 sec. Neurologic: Cranial nerves II-XII intact. Alert and oriented x 3. Motor: No deficits noted. Hematologic/Lymphatic: No ecchymosis, no lymphadenopathy. Course Vital Signs Vital signs: Vital Signs Temperature 36.6 C 01/03/25 13:38 Pulse 72 01/03/25 13:38 Respiratory Rate 16 01/03/25 13:38 Blood Pressure 108/60 01/03/25 13:38 Pulse Oximetry 97 01/03/25 13:38 Temperature 36.6 C 01/03/25 13:38 Temperature Source Oral 01/03/25 13:38 Pulse 72 01/03/25 13:38 Respiratory Rate 16 01/03/25 13:38 Blood Pressure 108/60 01/03/25 13:38 Blood Pressure Position Sitting 01/03/25 13:38 Pulse Oximetry 97 01/03/25 13:38 Oxygen Delivery Method Room Air 01/03/25 13:38 Oxygen Flow Rate 0 09/20/25 13:38 Pain Level 6 01/03/25 13:38 Medical Decision Making 44-year-old male presents to the ER via EMS with a chief complaint of dizziness and orthostatic vital signs, blood pressure soft with a systolic in the 90s, patient was recently discharged from the hospital for hepatic encephalopathy and alcohol withdrawal on the . He has been incarcerated since. Patient reports headache and decreased p.o. intake, patient was discharged with prescription for lactulose he denies any diarrhea reports that he had a formed bowel movement today. Denies any chest pain abdominal pain or vomiting. EKG obtained by ED staff upon arrival, workup ordered including CBC CMP, magnesium UDS liter of normal saline. Repeat blood pressure 107/71, heart rate is 67 O2 sat 98% labs are pending at this time. There is a delay in obtaining lab results, lab is at bedside at this time for redraw. Care to be handed off to oncoming provider Stefani Machuca pending lab results. Expected disposition is discharge into the care of law enforcement back to residential. He has remained hemodynamically stable here last blood pressure is 117 systolic. Received a liter of normal saline Medical Records Medical records reviewed: Yes I reviewed the patient's medical records. PFSH All Active Problems Alcohol use disorder, severe, dependence (Acute) Alcoholic cirrhosis of liver (Acute) Urinary retention (Acute) Medical clearance for incarceration (Acute) Left leg swelling (Acute) Medical History Hepatic encephalopathy Social History Smoking/Tobacco Use Status: Never Smoking risk assessment performed?: Yes Alcohol Intake: current Alcohol Intake frequency: 0-2 drinks per day Substance use type: marijuana Housing: other Do you feel safe at home: Yes Do you feel safe in your relationship?: Yes
[2025-01-03] MEDS: Normal Saline 1,000 ML 1000 ML IV (14:21)
[2025-01-03 15:39] LABS: Abs Immature Grans 0.02 10^3/uL (0.0-0.06); HCT 38.1 % (40.0-50.0); HGB 12.8 g/dL (13.5-17.5); Immature Grans % 0.5 %; MCH 32.2 pg (27.0-33.0); MCHC 33.6 % (32.0-36.0); MCV 96 fL (80-95); MPV 11.2 fL (8.0-11.0); RBC 3.97 10^6/uL (4.36-5.78); RDW 15.4 % (11.8-14.1); RDW-SD 55.3 fL; WBC 3.85 10^3/uL (4.4-10.8)
[2025-01-03 15:54] LABS: ALT 52 U/L (16-63); AST 77 U/L (15-37); Albumin 2.5 g/dL (3.4-5.0); Alkaline Phosphatase 134 U/L (46-116); Anion Gap 4.6 mmol/L (3-11); BUN 12 mg/dL (7-18); Bilirubin, Total 1.3 mg/dL (0.2-1.0); CO2 28.4 mmol/L (21.0-32.0); Calcium 8.3 mg/dL (8.5-10.1); Chloride 102 mmol/L (98-107); Estimated GFR 117.98 (mL/min/1.73m2); Glucose 100 mg/dL (74-106); Magnesium 1.6 mg/dL (1.8-2.4); Potassium 4.4 mmol/L (3.5-5.1); Sodium 135 mmol/L (136-145); Total Protein 6.8 g/dL (6.4-8.2)
[2025-01-03 16:01] LABS: Platelet Count 83 10^3/uL (130-400)
--- NOTE | 2025-01-03 16:27 | W.EDPROG ---
Date of service: 01/03/25 Time of Service: 16:00 Medical Decision Making Handoff report received from Brianna Purcell [employer]P, daytime ALICIA. Please see her note for full HPI, ROS, physical exam. Workup overall very reassuring. EKG shows normal sinus rhythm, rate 75, normal intervals. No changes consistent with acute ischemia. CBC shows anemia unchanged from baseline. LFTs improved from recent hospitalization. Hypomagnesemia, 1.6 persists. I did briefly interview patient, he reports he had some headache and lightheadedness/dizziness earlier today. Has been taking lactulose as prescribed, today had 1 soft formed stool, denies black/tarry stools, gum bleeding, hematuria, or other unusual bleeding. While in the ED Regan received 1 L normal saline with full improvement of symptoms, says he is feeling significantly better with headache and lightheadedness resolved. No episodes of hypotension noted since arrival to ED. He was able to ambulate without difficulty or lightheadedness. Unclear etiology of dizziness, likely dehydration. Reviewed discharge instruction with patient, including importance of good hydration, and red flags indicate need for return to emergency care. Discharge Plan Disposition [facility] Disposition: [facility] Discharge Details Clinical Impression: Dizziness Primary Care Provider: Unknown,Unknown ED Provider: Stefani Andrade Home Meds and New Rx's Prescriptions: No Action tamsulosin 0.4 mg Capsule 0.4 mg PO DAILY Qty: 30 0RF lactulose 10 gram/15 mL Solution 20 g PO BID Qty: 200 0RF folic acid 1 mg tablet 1 mg PO DAILY 30 Days Qty: 30 0RF multivitamin Tablet 1 tab PO DAILY Qty: 90 0RF thiamine HCl (vitamin B1) 100 mg tablet 100 mg PO DAILY Qty: 30 0RF magnesium oxide 400 mg magnesium tablet 400 mg PO DAILY Discharge Instructions Additional Instructions: Your workup today was reassuring. While in the emergency department you received 1 L of fluids with good improvement of symptoms. It is likely that your symptoms were due to dehydration. Continue taking your medications as prescribed. Stay well-hydrated, drinking plenty of fluids throughout the day. Be sure to eat regular meals. Return to emergency care if develop new severe episodes of dizziness, chest pain, difficulty breathing, episodes of passing out, blood in your stools, or if you are very worried and need to be rechecked again immediately.
[2025-01-03 17:40] LABS: Cannabinoids THC Positive (Negative); METHADONE URINE SCREEN Negative (Negative)
== END 2025-01-03 18:32 ==
PROVIDERS: Registered Nurse Emergency; Emergency Provider Nurse Practitioner Family
DX: R42 Dizziness and giddiness (principal)
CPT/HCPCS: 00123; 80053; 80307; 82962; 93005; 99283; 83735; 85025; 93010